=== PATIENT | female | born 1955 | race Caucasian/White ===

== ENCOUNTER 2024-05-15 22:34 | Observation (INO) | payer OTHER, SELFPAY ==
--- NOTE | ~2024-05-15 | XR_ITS ---
Portable chest x-ray Comparison: None Clinical History: Sepsis Findings: There is retrocardiac airspace consolidation with mild haziness in the left upper lobe. Ri ght lung clear. Cardiomediastinal silhouette is unremarkable, with a loop recorder. Bones and soft t issues are unremarkable. Impression: Left upper and lower lobe airspace consolidation, suspicious for multifocal left lung pneumonia. Reviewed, dictated and finalized at location . Impression: Left upper and lower lobe airspace consolidation, suspicious for multifocal lef t lung pneumonia.
--- NOTE | ~2024-05-15 | CT_ITS ---
History: Ground-level fall. PROCEDURE: CT head without contrast. Examination is markedly limited by motion artifact. COMPARISON: None TECHNIQUE: Axial imaging of the head performed from the skull base to the vertex without IV contrast. Sagittal a nd coronal reformations obtained. DLP: 1362 mGy-cm FINDINGS: The ventricles are enlarged. The dilatation of the ventricles is proportional to the degree of sulcal prominence, not uncommon in the senescent brain. Decreased attenuation is identified within the periventricular white matter, likely secondary to micr ovascular ischemic disease, in a patient of this age. Additional decreased attenuation is identified within the distribution of the right middle cerebral a rtery with encephalomalacia and gliosis for which prior cerebral infarction is suspected. There is no mass, mass effect or midline shift. There is no abnormal extra-axial fluid collection or intracranial hemorrhage. Visualized paranasal sinuses are clear. The mastoid air cells are well aerated. No acute displaced fractures within the overlying cranium. Impression: No acute intracranial hemorrhage or suspicious mass effect. Prior right MCA cerebral infarction Reviewed, dictated and finalized at location A. Impression: No acute intracranial hemorrhage or suspicious mass effect. Prior right MCA cerebral infarction
--- NOTE | ~2024-05-15 | XR_ITS ---
EXAM/PROCEDURE: XR chest 1V portable - 05/19/2024 10:50 CDT HISTORY: 68 years old Female with pneumonia TECHNIQUE: AP view(s) of the chest. COMPARISON: 05/16/2024 FINDINGS/ IMPRESSION: Mild interval improvement of previously seen retrocardiac airspace consolidation. Right lung is clear . Unremarkable cardiomediastinal silhouette with a loop recorder. Mild degenerative changes. Reviewed, dictated and finalized at location A.
--- NOTE | ~2024-05-15 | CT_ITS ---
History: Ground-level fall PROCEDURE: CT cervical spine without intravenous contrast. COMPARISON: None TECHNIQUE: Multiple contiguous axial images of the cervical spine were performed without the administration of i ntravenous contrast. DLP: 203 mGy-cm FINDINGS: Significant degenerative disease is identified, with osteophyte formation, disc space narrowing, endp late changes and facet arthropathy. No acute fractures are present. The right lung apex is clear. Patchy opacification of the left upper lobe for which an infiltrate is suspected. No soft tissue abnormality is present. The airway is patent. Impression: Severe degenerative disease, without acute fracture. Additional findings within the left upper lobe for which an infiltrate is suspected. Reviewed, dictated and finalized at location A. Impression: Severe degenerative disease, without acute fracture. Additional findings within the left upper lobe for which an infiltrate is suspe cted.
[2024-05-15 22:40] VITALS: BP 82/61; PULSE 82; RESP 18; O2SAT 93
--- NOTE | 2024-05-15 23:07 | ECG_ITS ---
Test Date: 2024-05-16 00:02:20 Measurements Intervals [place] Rate: 89 P: 75 IA: 187 QRS: 30 QRSD: 92 T: 42 QT: 328 QTc: 401 Interpretive Statements SINUS RHYTHM BORDERLINE ST-T WAVE ABNORMALITY- DIFFUSE LEADS BASELINE ARTIFACT- I, II, III, AVR, AVL, AVF, V1-V6 BORDERLINE ECG No previous ECG available for comparison Electronically Signed On 05-16-2024 07:49:16 CDT by Bridger Saul D.O.
--- OUTSIDE RECORDS SUMMARY | 2024-05-15 23:56 | XMS_ITS | Clinical Summary ---
Author Organization [facility] Address [address] [place] [address] Care Team Providers Care Finishing Range Operator Name Role Phone Denise Lopes MD Primary Care Provid er Allergies Active Allergy Reactions Criticality Noted Date Comments Codeine Anaphylaxis,Other (S ee comments),Shortness of breath High 05/12/2018 Medications acetaminophen (TYLENOL) 500 mg tablet Take 1,000 mg by mouth 2 times daily 05/01/2021 Active aspirin 325 mg tablet Take 325 mg by mouth daily 04/03/2021 Active atorvastatin (LIPITOR) 80 mg tablet 09/18/2021 Active busPIRone (BUSPAR) 10 mg tablet Take 1 tablet by mouth 3 (three) times a day 08/18/2020 Active clopidogreL (PLAVIX) 75 mg tablet 08/26/[address] (CYMBALTA) 60 mg capsule 09/14/2021 Active enoxaparin (LOVENOX) 40 mg/0.4 mL syringe Inject 40 mg under the skin daily 05/02/2021 Active gabapentin (NEURONTIN) 300 mg capsule 09/30/2021 Active guaiFENesin ER (MUCINEX) 600 mg 12 hr tablet Take 600 mg by mouth 2 (two) times a day as needed 05/01/2021 Active hydrOXYzine (ATARAX) 25 mg tablet Take 25 mg by mouth every 6 (six) hours as needed 05/01/2021 Active lactulose solution 10 gram/15mL Take 20 g by mouth 2 (two) times a day as needed 05/01/2021 Active melatonin 5 mg tablet Take 5 mg by mouth nightly as needed 04/02/2021 Active OLANZapine (ZyPREXA) 5 mg tablet Take 5 mg by mouth daily 05/02/2021 Active senna (SENOKOT) 8.6 mg tablet Take 8.6 mg by mouth daily 05/02/2021 Active tiZANidine (ZANAFLEX) 4 mg tablet Take 4 mg by mouth 3 (three) times a day 05/01/2021 Active Active Problems Problem Noted Date Diagnosed Date Leg swelling 10/07/2021 Assessment & Plan (10/07/2021 10:05 AM CDT): Left lower extremity edema in the hemiplegic side from a prior stroke. We discussed this is likely due to immobility and being wheelchair bound. I have recommended compression therapy. I have written prescription for compression stocking. She can follow-up p.r.n.. 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 05/01/2021 Difficulty in walking, not elsewhere classified 05/01/2021 Dysphagia following cerebral infarction 05/02/19 Dysphasia following nontraumatic intracerebral h emorrhage 05/01/2021 Hyperlipidemia, unspecified 05/01/2021 Assessment & Plan (10/07/2021 10:05 AM CDT): Lipitor Insomnia, unspecified 05/01/2021 Muscle weakness (generalized) 05/01/2021 Hemiplegia and hemiparesis f ollowing cerebral infarction affecting left non-dominant side 04/02/2021 Hemiplegia, unspecified affecting left nondomina nt side 04/02/2021 Hypertension 04/02/2021 Hypokalemia 04/02/2021 Cerebrovascular accident (CVA) 03/30/2021 Grief reaction 06/29/2019 Reactive depression 06/29/2019 Social History Tobacco Use Types Packs/Day Years Used Date Smoking Tobacco: Never Assessed Comments Unknown Sex and Gender Information Value Date Recorded Sex Assigned at Not on file 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 Gender Identity Female 10/07/2021 9:09 AM CDT Sexual Orientation Not on file Obstetrics History Last Filed Vital Signs Vital Sign Reading Time Taken Comments Blood Pressure 108/72 10/07/2021 9:23 AM CDT Pulse 106 10/07/2021 9:23 AM CDT Temperature - - Respiratory Rate - - Oxygen Saturation - - Inhaled Oxygen Concentration - - Weight 66.7 kg (147 lb) 10/07/2021 9:23 AM CDT Height 160 cm (5' 3 ) 10/07/2021 9:23 AM CDT Body Mass Index 26.04 10/07/2021 9:23 AM CDT Plan of Treatment Health Maintenance Due Date Last Done Comments Breast Cancer Screening-Mammogram 1955 Colon Cancer Screening-Colonoscopy 1955 Depression Screening 1955 Fall Risk Assessment 1955 Hepatitis C Screening 1955 Osteoporosis Screening-Bone Density Scan 1956 DTaP/Tdap/Td Vaccine (1 - Tdap) 09/26/1967 Hepatitis B Screening 1974 Pneumococcal vaccine 65+ (1 of 1 - PCV) 2006 Zoster Vaccine (1 of 2) 2006 Well Visit 65+ 2021 Covid-19 Vaccine (5 - 2023-2 5 season) 2023 06/17/2021, 06/17/2021, 12/08/2020, Additional history exists Influenza Vaccine (#1) 2023 11/29/2019 Insurance [facility] Care Teams Finishing Range Operator Relationship Specialty Start Date End Date Denise Lopes MD [address] [place] [address] PCP - General 03/30/21
--- OUTSIDE RECORDS SUMMARY | 2024-05-15 23:56 | XMS_ITS | Clinical Summary ---
Author Organization [facility] Address [address] [place] [address] Care Team Providers Care Broadcast Correspondent Name Role Phone Fadi Darden MD Primary Care Provider [phone] Allergies Active Allergy Reactions Criticality Noted Date Comments Codeine Shortness Of Breath High 04/02/2021 Medications acetaminophen (TYLENOL) 500 MG tablet Take 2 tablets (1,000 mg total) by mouth 2 (two) times a day before meals. 0 05/01/2021 Active acetaminophen (TYLENOL) 325 MG tablet Take 2 tablets (650 mg total) by mouth every 4 (four) hours as needed for mild pain. 0 05/01/2021 Active aspirin 325 MG tablet Take 1 tablet (325 mg total) by mouth daily. 0 05/02/2021 Active atorvastatin (LIPITOR) 80 MG tablet Take 1 tablet (80 mg total) by mouth daily. 0 05/02/2021 Active busPIRone (BUSPAR) 10 MG tablet Take 1 tablet (10 mg total) by mouth 2 (two) times a day. 0 05/01/2021 Active clopidogrel (PLAVIX) 75 MG tablet Take 1 tablet (75 mg total) by mouth daily. 0 05/02/2021 Active DULoxetine (CYMBALTA) 20 MG capsule Take 1 capsule (20 mg total) by mouth 2 (two) times a day. 0 05/01/2021 Active enoxaparin (LOVENOX) 40 MG/0.4ML solution Inject 0.4 mL (40 mg total) under the skin daily. 0 05/02/2021 Active guaiFENesin (MUCINEX) 600 MG 12 hr tablet Take 1 tablet (600 mg total) by mouth 2 (two) times a day as needed for cough. 0 05/01/2021 Active hydrOXYzine (ATARAX) 25 MG tablet Take 1 tablet (25 mg total) by mouth every 6 (six) hours as needed for anxiety. 0 05/01/2021 Active lactulose (CHRONULAC) 10 GM/15ML solution Take 30 mL (20 g total) by mouth 2 (two) times a day as needed (constipatio n). 0 05/01/2021 Active OLANZapine (ZYPREXA) 5 MG tablet Take 1 tablet (5 mg total) by mouth daily. 0 05/02/2021 Active senna (SENOKOT) 8.6 MG tablet Take 1 tablet (8.6 mg total) by mouth daily with lunch. 0 05/02/2021 Active tiZANidine (ZANAFLEX) 4 MG tablet Take 1 tablet (4 mg total) by mouth 3 (three) times a day. 0 05/01/2021 Active melatonin 5 MG tablet Take 1 tablet (5 mg total) by mouth nightly. 05/01/2021 Active Active Problems Problem Noted Date Diagnosed Date Hemiplegia affecting left nondominant side 04/02 Hypertension 04/02/2021 Hypokalemia 04/02/2021 Hemiparesis following cerebr al infarction affecting left non-dominant side 04/02/2021 Cerebrovascular accident 03/30/2021 Reactive depression (situational) 06/29/2019 Social History Tobacco Use Types Packs/Day Years Used Date Smoking Tobacco: Every Day Cigarettes Smokeless Tobacco: Never Tobacco Cessation:Ready to Q uit: No Alcohol Use Standard Drinks/Week Comments Yes 0 (1 standard drink = 0.6 oz pur e alcohol) not every day Comments Unknown Sex and Gender Information Value Date Recorded Sex Assigned at Not on file Legal Sex Female 12:31 PM EST Gender Identity Not on file Sexual Orientation Not on file Last Filed Vital Signs Vital Sign Reading Time Taken Comments Blood Pressure 115/73 05/01/2021 8:00 AM CDT Pulse 94 05/01/2021 8:00 AM CDT Temperature 37 C (98.6 F) 05/01/2021 8:00 AM CDT Respiratory Rate 18 05/01/2021 8:00 AM CDT Oxygen Saturation 96% 05/01/2021 8:00 AM CDT Inhaled Oxygen Concentration - - Weight 69.4 kg (153 lb) 04/09/2021 10:00 AM DISTRICT FIRE CHIEF Height 160 cm (5' 3 ) 04/02/2021 5:25 PM DISTRICT FIRE CHIEF Body Mass Index 27.1 04/02/2021 5:25 PM DISTRICT FIRE CHIEF Plan of Treatment Not on file Advance Directives * Full Resuscitation (Latest Code Status on File) Date Activated Date Inactivated Comments 04/02/2021 5:59 PM 05/01/2021 7:47 PM Care Teams Broadcast Correspondent Relationship Specialty Start Date End Date Fadi Darden MD PCP - General Family Medicine 04/03/21
--- OUTSIDE RECORDS SUMMARY | 2024-05-15 23:56 | XMS_ITS ---
Author Organization [facility] Care Team Providers Care Mixing Place Supervisor Name Role Phone Wang Kaufman Unavailable Unavailable Bubba iPnto Unavailable Unavailable Allergies and adverse reactions Code CodeSystem Substance Reaction Severity StartDate Concern Status 2670 RXNORM Codeine Severe 05/01/2021 active Care Team Name Role Address Phone Organization Dates Wang Kaufman PCP [address] [place], [address], [place] (Office): : : [facility] 05/01/2021 - 06/18/2021 Bubba Pinto Attending Physician [address], [address], [place] (Office): [facility] 05/01/2021 - 06/18/2021 Immunizations Immunization Status Vaccine Details Vaccine Code CodeSystem Date Notes TB 2 Step Mantoux Skin Test completed tuberculin skin test; unspecified formulation lotNumber: [id number] expiry: 07/24/2022 Mfg: [employer] PA[employer] LIMITED Given 0.1 ml Right Forearm intradermally Step 1 of Multi-step with next step required 98 CVX created date: 05/05/2021 consent date: 05/05/2021 administer ed date: 05/05/2021 SARS-COV-2 (COVID-19) completed SARS-COV-2 (COVID-19) vaccine, mRNA, spike protein, LNP, preservative free, 30 mcg/0.3mL dose Step 1 of Multi-step 208 CVX created date: 06/16/2021 consent date: 06/16/2021 administer ed date: 06/17/2021 2nd booster SARS-COV-2 (COVID-19) completed SARS-COV-2 (COVID-19) vaccine, mRNA, spike protein, LNP, preservative free, 30 mcg/0.3mL dose, eriberto-sucrose formulation Mfg: pfizer Step 1 of Multi-step 217 CVX created date: 05/04/2021 administer ed date: 12/28/2020 SARS-COV-2 (COVID-19) completed SARS-COV-2 (COVID-19) vaccine, mRNA, spike protein, LNP, preservative free, 30 mcg/0.3mL dose Step 2 of Multi-step with next step required 208 CVX created date: 05/14/2021 administer ed date: 03/24/2020 SARS-COV-2 (COVID-19) completed SARS-COV-2 (COVID-19) vaccine, mRNA, spike protein, LNP, preservative free, 30 mcg/0.3mL dose, eriberto-sucrose formulation Mfg: [employer] #1 Step 1 of Multi-step with next step required 217 CVX created date: 05/04/2021 administer ed date: 03/03/2020 Mental Status Section Date Assessment Total Score Description 06/18/2021 BIMS 10 moderate cognit kurt impairment CAM 0 No delirium ind icated PHQ-9 00 05/08/2021 BIMS 15 cognitively int act CAM 0 No delirium ind icated PHQ-9 00 Problems Problem # Description Date of onset Resolved Date Code CodeSystem Concern Status 1 ANXIETY DISORDER, UNSPECIFIED 05/01/[address] active 2 CEREBRAL INFARCTION DUE TO UNSPECIFIED OCCLUSION OR STENOSIS OF RIGHT MIDDLE CEREBRAL ARTERY 05/01/[address] active 3 COGNITIVE SOCIAL OR EMOTIONAL DEFICIT FOLLOWING CEREBRAL INFARCTION 05/01/[address] active 4 DIFFICULTY IN WALKING, NOT ELSEWHERE CLASSIFIED 05/01/[address] active 5 DYSPHAGIA FOLLOWING CEREBRAL INFARCTION 05/01/[address] active 6 DYSPHASIA FOLLOWING NONTRAUMATIC INTRACEREBRAL HEMORRHAGE 05/01/[address] active 7 ESSENTIAL (PRIMARY) HYPERTENSION 05/01/[address] active 8 HEMIPLEGIA AND HEMIPARESIS FOLLOWING CEREBRAL INFARCTION AFFECTING LEFT NON-DOMINANT SIDE 05/01/[address] active 9 HYPERLIPIDEMIA, UNSPECIFIED 05/01/[address] active 10 HYPOKALEMIA 05/01/[address] active 11 INSOMNIA, UNSPECIFIED 05/01/[address] active 12 MUSCLE WEAKNESS (GENERALIZED) 05/01/[address] active 13 OTHER SPECIFIED DEPRESSIVE EPISODES 05/01/[address] active Reason for Referral No Reasons for Referral Entered Social History Social History Observation Description Start Date End Date Code Code System Current Smoking Status Tobacco smoking consumption unknown 328662899 SNOMED CT Sex Assigned At Female 1955 89461-6 [facility] Vital Signs Code Code System Vitals Name Values and Units Timing Information 35149-2 INC Pain Level Value=0.0 06/18/2021 8310-5 INC Body Temperature Value=98.0 Units= F 06/18/2021 27489-5 LOINC O2 % BldC Oximetry Value=96.0 Units= % 06/18/2021 63790-5 LOINC Weight Agjic=777.0 Units=Lbs 07/2021 9279-1 LOINC Respiratory Rate Value=18.0 Units=/m in 05/07/2021 8462-4 LOINC Blood Pressure-Diastolic Value=69 Un its=mmHg 05/07/2021 8480-6 LOINC Blood Pressure-Systolic Wonjt=609 Un its=mmHg 05/07/2021 8867-4 LOINC Heart rate Ffeig=634.0 Units=/min 05/07/2021 8302-2 LOINC Height Value=63.0 Units=Inches 05/02/2021
--- OUTSIDE RECORDS SUMMARY | 2024-05-15 23:56 | XMS_ITS | Encounter Summary ---
Author Organization [facility] Address [address] [place] [address] Care Team Providers Care Coordinator Hotels Name Role Phone Unavailable Primary Care Provider Unavailabl e Encounter Details Date Type Department Care Team (Latest Contact Info) Description 04/02/2021 11:24 AM FINISHER CARD TENDER Hospital Encounter [address] [address] Meg Doty MD [facility] Social History Tobacco Use Types Packs/Day Years Used Date Smoking Tobacco: Every Day Cigarettes 1 53.3 Started: [birth year]/07/1971 Smokeless Tobacco: Never Alcohol Use Standard Drinks/Week Comments Not Currently 0 (1 standard drink = 0.6 oz pur e alcohol) AUDIT-C Answer Date Recorded Q1: How often do you have a drink containing alc ohol? Monthly or less 03/30/2021 Q2: How many drinks containi ng alcohol do you have on a typical day when you are drinking? 1 or 2 03/30/2021 Q3: How often do you have si x or more drinks on one occasion? Less than monthly 03/30/2021 PHQ-2 Answer Date Recorded PHQ2 TOTAL SCORE 2 03/30/2021 Hunger Vital Sign Answer Date Recorded Within the past 12 months, y ou worried that your food would run out before you got the money to buy more. Never true 03/31/19 22 Within the past 12 months, t he food you bought just didn't last and you didn't have money to get more. Never true 03/31/2021 Sex and Gender Information Value Date Recorded Sex Assigned at Not on file Gender Identity Not on file Sexual Orientation Not on file COVID-19 Exposure Response Date Recorded In the last month, have you been in contact with someone who was confirmed or suspected to have Coronavirus / COVID-19? No / Unsure 03/30/2021 9:09 PM FINISHER CARD TENDER documented as of this encounter Functional Status Functional Status Response Date of Assess ment Is person deaf or have serious hearing difficult y? No 03/31/2021 Is person blind or have serious difficulty seein g? No 03/31/2021 Does person have serious dif ficulty walking/climbing stairs? No 03/31/2021 Does person have difficulty dressing/bathing? No 03/31/2021 Does person have difficulty doing errands alone? No 03/31/2021 Cognitive Status Response Date of Assessm ent Does person have difficulty concentrating/remembering/making decisions? Yes-can no longer drive, at times gets lost 03/31/2021 documented as of this encounter Plan of Treatment Not on file documented as of this encounter Visit Diagnoses Not on filedocumented in this encounter Additional Health Concerns Infection Onset Date Last Indicated Resolved Time COVID-19 Under Investigation 04/28/2021 04/28/2021 04/28/2021 6:56 PM CDT documented as of this encounter
--- OUTSIDE RECORDS SUMMARY | 2024-05-15 23:56 | XMS_ITS | Referral Summary ---
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
--- OUTSIDE RECORDS SUMMARY | 2024-05-15 23:56 | XMS_ITS | Clinical Summary ---
Author Organization [facility] Address [address] [place] [address] Care Team Providers Care Senior Director Insight Name Role Phone Unavailable Primary Care Provider Unavailabl e Source Comments [facility],non-owned Affiliates and Associated Physician Practices is amultiple site organization consisting of ambulatory clinics and hospital sitesin [place], [place], [place] and [place]. This disclosure is being madepursuant to the Care Everywhere program and may not contain all information available regarding this patient. Last updated 17.[facility] [employer] Allergies Active Allergy Reactions Criticality Noted Date Comments Codeine Anaphylaxis High 05/12/2018 Medications * Be aware that medications may not be up to date on this document. Alwaysverify current medications with the patient. Medication Sig Dispensed Refills Start Date End Date Status atorvastatin (LIPITOR) 80 MG tablet Take 80 mg by mouth once daily 02/02/2021 Active busPIRone (BUSPAR) 10 MG tablet Take 1 tablet by mouth 3 times daily 08/18/2020 Active clopidogrel (PLAVIX) 75 MG tablet Take 75 mg by mouth once daily 02/02/2021 Active escitalopram (LEXAPRO) 20 MG tablet Take 20 mg by mouth once daily 03/02/2021 Active aspirin (ASPIRIN) 325 MG tablet Take 1 (one) tablet by mouth once daily 04/03/2021 Active melatonin 5 MG tablet Take 1 (one) tablet by mouth nightly as needed for Insomnia 04/02/2021 Active Active Problems Problem Noted Date Diagnosed Date Cerebrovascular accident (CVA) 03/30/2021 Social History Tobacco Use Types Packs/Day Years [...] money to buy more. Never true 03/31/19 Within the past 12 months, t he food you bought just didn't last and you didn't have money to get more. Never true 03/31/2021 Sex and Gender Information Value Date Recorded Sex Assigned at Not on file Gender Identity Not on file Sexual Orientation Not on file Last Filed Vital Signs Vital Sign Reading Time Taken Comments Blood Pressure 173/112 04/02/2021 3:14 PM EELER Pulse 97 04/02/2021 3:14 PM EELER Temperature 37.1 C (98.8 F) 04/02/2021 3:14 PM EELER Respiratory Rate 19 04/02/2021 3:14 PM EELER Oxygen Saturation 97% 04/02/2021 3:14 PM EELER Inhaled Oxygen Concentration - - Weight 64.9 kg (143 lb) 04/01/2021 5:21 AM EELER Height 160 cm (5' 3 ) 03/31/2021 3:58 AM EELER Body Mass Index 25.33 03/31/2021 3:58 AM EELER Plan of Treatment Health Maintenance Due Date Last Done Comments BONE DENSITY TESTING 1955 COLOGUARD (AGES 45-75) - COLON CA SCREENING 1955 COLON MONITORING 1956 COLONOSCOPY - COLON CA SCREENING 1956 CT COLONOGRAPHY - COLON CA SCREENING 1955 Colorectal Cancer Screening 1955 FIT - COLON CA SCREENING 1955 FLEX SIG - COLON CA SCREENING 1955 MAMMOGRAM 1955 HEPATITIS C SCREENING 09/21/1974 DTAP/TDAP/TD VACCINES (1 - Tdap) 09/26/1975 PNEUMOCOCCAL VACCINE 50+ (1 of 2 - PCV) 09/26/1975 LUNG CANCER SCREENING 2006 ZOSTER VACCINE (1 of 2) 2006 COVID-19 VACCINE (4 - season) 2023 12/08/2020, 03/24/2020, 03/03/2020 DEPRESSION SCREENING 02/08/2024 SCREENING FOR DIABETES 04/30/2024 , 04/27/2021, 04/23/2021, Additional history exists INFLUENZA VACCINE (Season Ended) 2024 11/29/2019 Respiratory Syncytial Virus (RSV) Vaccine Pt: or over 60 yrs (1 - 1-dose 75+ series) 09/26/2031 HEPATITIS B VACCINE Aged Out No longe r eligible based on patient's age to complete this topic HIB VACCINE Aged Out No longer eligi ble based on patient's age to complete this topic HPV VACCINE Aged Out No longer eligi ble based on patient's age to complete this topic MENINGOCOCCAL (Group B) VACCINE SHARED DECISION-MAKING Aged Out No longer eligible based on patient's age to complete this topic MENINGOCOCCAL GROUPS A/C/Y/W VACCINE Aged Out No longer eligible based on patient's age to complete this topic Procedures Procedure Name Priority Date/Time Associated Diagnosis Comments BASIC METABOLIC PANEL (CALCIUM TOTAL) Routine 04/30/2021 3:59 AM CDT from Last 3 Months or Most Recently Relevant to Health Maintenance Results * (ABNORMAL) BASIC METABOLIC PANEL (CALCIUM TOTAL) (04/30/2021 3:59 AM CDT) [facility] Glucose 134(H) 70 - 105 mg/dL 04/30/2021 6:47 AM CDT [facility] Sodium 139 136 - 145 mmol/L 04/30/2021 6:47 AM CDT [facility] Potassium 4.2 3.5 - 5.1 mmol/L 04/30/2021 6:47 AM CDT [facility] Chloride 106 98 - 107 mmol/L 04/30/2021 6:47 AM CDT [facility] CO2 23 23 - 31 mmol/L 04/30/2021 6:47 AM CDT [facility] Calcium 9.3 8.4 - 10.4 mg/dL 04/30/2021 6:47 AM CDT [facility] Anion Gap 10 8 - 18 mmol/L 04/30/2021 6:47 AM CDT [facility] BUN 28(H) 9.8 - 20.1 mg/dL 04/30/2021 6:47 AM CDT [facility] Creatinine 0.78 0.57 - 1.11 mg/dL 04/30/2021 6:47 AM CDT [facility] eGFR by CKD-EPI 85(L) >=90 mL/min/1.7 3 m2 04/30/2021 6:47 AM CDT [facility] Blood BLOOD SPECIMEN / Unknown 04/30/2021 3:59 AM CDT 04/30/2021 6:09 AM CDT Narrative [facility] - 04/30/2021 6:47 AM CDT eGFR result was calculated using the updated CKD-EPI Creatinine Equations (2020). Prior to go live 2021 the eGFR was calculated using the MDRD calculation. Please note Reference Range change. Bridgette House SEVERITY OF ILLNESS COORDINATOR-BUS CLEANER LAB - CHEMISTRY ORDERABLES [facility] [address] [place] [address] from Last 3 Months or Most Recently Relevant to Health Maintenance Advance Directives * Full Code (Latest Code Status on File) Date Activated Date Inactivated Comments 04/05/2021 7:37 AM 05/01/2021 5:45 PM * Full Code Date Activated Date Inactivated Comments 03/30/2021 6:18 PM 04/02/2021 5:30 PM
[2024-05-16] VITALS (9 sets, daily range): BP systolic 93–139; BP diastolic 59–87; PULSE 88–107; RESP 14–20; TEMP 36.2–37.1; O2SAT 93–98; BMI 22.4
[2024-05-16] MEDS: SODIUM CHLORIDE 0.9% IV 1,000 ML 999 ML IV CONT ×2 (00:08)
[2024-05-16] MEDS: CEFEPIME 2 GM/NS 50 ML 2 GM/50 ML BAG IVPB ×3 (00:08→21:20)
[2024-05-16] MEDS: ENTER PT HEIGHT 1 EACH XX (00:12)
[2024-05-16] MEDS: Please add drug allergy info to patient profile. 1 EACH XX (00:12)
[2024-05-16 00:20] LABS: Lactic Acid Reflex 1.3 mmol/L (0.7-2.0)
[2024-05-16 00:21] LABS: Add Urine Microscopic? YES; Appearance Urine Cloudy (Clear); Bacteria Urine 4+ /hpf; Bilirubin Urine 2+ (Negative); Blood Urine Negative (Negative); Budding Yeast Urine Present /hpf; Color Urine Dark Yellow (Yellow); Glucose Urine UA Negative (Negative); Ketones Urine 1+ mg/dL (Negative); Leukocyte Esterase Ur 1+ LEU/UL (Negative); Need Manual Microscopic Reviewed; Nitrate Urine Negative (Negative); Protein Urine 1+ mg/dL (Negative); RBC Urine 0-2 /hpf (0-2); Specific Grav Ur 1.024 (1.001-1.035); Squamous Epithelial Cell Urine Moderate /hpf (Few); WBC Urine 21-50 /hpf (0-3); pH Urine 5.5 (5.0-9.0)
[2024-05-16 00:26] LABS: INR 1.1; Prothrombin Time 14.7 Seconds (11.1-14.7)
[2024-05-16 00:27] LABS: Partial Thromboplastin Time 37.8 Seconds (22.3-36.8)
[2024-05-16 00:28] LABS: Alanine Aminotransferase 14 U/L (6-35); Albumin Level 3.1 g/dL (3.5-5.1); Alkaline Phosphatase 146 U/L (38-126); Anion Gap 7 mmol/L (4-12); Aspartate Amino Transferase 40 U/L (14-36); Bilirubin,Total 0.9 mg/dL (0.2-1.3); Blood Urea Nitrogen 29 mg/dL (7-17); Calcium 8.5 mg/dL (8.4-10.2); Carbon Dioxide 30 mmol/L (22-30); Chloride 94 mmol/L (98-107); Estimated CRCL calculation 57 ml/min; Estimated Glomerular Filt Rate > 60; Glucose 144 mg/dL (65-110); Potassium 3.3 mmol/L (3.4-5.0); Sodium 131 mmol/L (137-145)
[2024-05-16 00:37] LABS: Basophils Absolute Auto 0.1 K/mm3 (0.0-0.1); Basophils Percent Auto 0.3 % (0.2-1.2); Eosinophils Percent Auto 0.1 % (0-4.4); Hematocrit 32.6 % (37.0-47.0); Immature Granulocyte Absolute 0.08 K/mm3 (0.00-0.031); Immature Granulocyte Percent A 0.5 % (0-0.5); Lymphocytes Absolute Auto 0.68 K/mm3 (0.9-3.2); Mean Corpuscular HGB Conc 30.7 g/dl (32-36); Mean Corpuscular Hemoglobin 29.2 pg (26-34); Mean Platelet Volume 9.7 fl (7.4-10.4); Monocytes Absolute Auto 0.6 K/mm3 (0.1-0.6); Monocytes Percent Auto 3.8 % (2.6-8.5); Neutrophils Absolute Auto 15.5 K/mm3 (1.3-6.7); Neutrophils Percent Auto 91.3 % (45.5-73.1); Platelet Count Result 564 k/mm3 (150-375); Red Blood Count 3.43 M/mm3 (4.2-5.4); Red Cell Distribution Width 13.8 % (11.5-14.5)
[2024-05-16 00:47] LABS: Band Neutrophils Percent 0 % (0-6); Platelet Estimate Increased (Adequate)
[2024-05-16 00:48] LABS: Ovalocytes 1+; Poikilocytosis 1+; Schistocytes None Seen
[2024-05-16 01:03] LABS: CRP 27.1 mg/dL (<1.0)
[2024-05-16] MEDS: VANCOMYCIN 1,750 MG/NS 500 ML 1,750 MG/500 ML BAG 250 MG IVPB (01:14)
--- NOTE | 2024-05-16 02:11 | ED.FALL ---
HPI - Fall General Chief Complaint: Fall Stated Complaint: FALL OUT OF BED, ON BLOOD THINNERS Time Seen by Provider: 05/15/24 22:59 Source: patient and family Mode of arrival: EMS Limitations: no limitations History of Present Illness HPI Narrative: This is a 68-year-old female, with history of stroke with left-sided deficits, brought in by EMS after a fall at her [place] [facility]. The patient states staff got home a were attempting to roll her when she fell out of bed. She has no complaints at this time and looks forward to going home. EMS reports the patient had a ground level fall without loss of consciousness. They states she takes Plavix and was sent in for evaluation. Related Data Home Medications ?Medication ?Instructions ?Recorded ?Confirmed ?Last Taken ?Type acetaminophen 325 mg chewable 650 mg PO Q4-6H PRN fever or pain 05/16/24 05/16/24 Unknown History tablet aspirin 81 mg tablet,delayed 81 mg PO DAILY 05/16/24 05/16/24 Unknown History release (Adult Aspirin Regimen) atorvastatin 80 mg tablet 80 mg PO QPM 05/16/24 05/16/24 Unknown History buspirone 10 mg tablet 10 mg PO HS 05/16/24 05/16/24 Unknown History buspirone 5 mg tablet 5 mg PO QAM 05/16/24 05/16/24 Unknown History clopidogrel 75 mg tablet 75 mg PO DAILY 05/16/24 05/16/24 Unknown History duloxetine 60 mg capsule,delayed 60 mg PO QAM 05/16/24 05/16/24 Unknown History release ferrous fumarate 324 mg (106 mg 324 mg PO DAILY 05/16/24 05/16/24 Unknown History iron) tablet (Ferrocite) gabapentin 300 mg capsule 300 mg PO Q8H 05/16/24 05/16/24 Unknown History polyethylene glycol 3350 17 17 g PO DAILY 05/16/24 05/16/24 Unknown History gram/dose oral powder (Miralax) pramipexole 0.25 mg tablet 0.25 mg PO TID 05/16/24 05/16/24 Unknown History ropinirole 0.25 mg tablet 0.25 mg PO TID 05/16/24 05/16/24 Unknown History sennosides 8.6 mg capsule (senna) 8.6 mg PO DAILY 05/16/24 05/16/24 Unknown History tizanidine 4 mg tablet 4 mg PO TID 05/16/24 05/16/24 Unknown History trazodone 50 mg tablet 50 mg PO HS 05/16/24 05/16/24 Unknown History Allergies Allergy/AdvReac Type Severity Reaction Status Date / Time codeine Allergy Unknown Verified 05/16/24 00:11 Review of Systems Review of Systems: All systems reviewed & are unremarkable except as noted in HPI and below PMFSH Past Medical History Medical History History of CVA (cerebrovascular accident) Surgical History Surgical History No significant past surgical history Social History Social History Smoking packs per day: 1 Smoking cigarettes per day: 20.0 Years smoked: 49 Smoking pack-years: 49.00 Smoking status: Current every day smoker Tobacco type: cigarettes Alcohol intake: unknown Substance use: unknown Do You Feel Safe in your Home?: Yes Lack of Transportation: No Lack of Food: Never True Current Housing: I Have Housing Concerned About Future Housing: No Difficulty Paying Gas/Electric Bills: No Difficulty Paying for Meds: No Currently Unemployed: No Education: High School Diploma/GED Difficulty w/ Childcare or Family Care: No Spiritual care concerns: No Exam Narrative: GENERAL: Well-developed, well-nourished, and in no acute distress. HEAD: Normocephalic, atraumatic. EYES: PERRLA and EOMI. ENT: Nares clear, no rhinorrhea or epistaxis. Mucous membranes moist. Oropharynx without tonsillar hypertrophy exudate or other lesions. CHEST: Clear to auscultation. No respiratory distress. No wheezes rales or rhonchi HEART: Regular rate and rhythm. No murmur heard. Normal peripheral pulses. ABDOMEN: Soft, nontender, nondistended, normal active bowel sounds. EXTREMITIES: Normal range of motion. No edema. SKIN: Warm, dry, no rash. NEURO: Alert and oriented x3. Left-sided weakness and contractures. Moving the right side spontaneously PSYCH: Normal mood and affect. Course Course Emergency Course: 23:35 - The patient is hypotensive. I had of increased concern for sepsis. We with unclear cause. Will order sepsis protocol, IV antibiotics and 30 cc/kg fluid bolus and reassess. 02:11 - CT of the head not concerning for skull fracture or intracranial hemorrhage. CT cervical spine negative for fracture or dislocation though does show focal infiltrates in the left lung concerning for pneumonia. The patient's white blood cell count is elevated to 17 with hemoglobin of 10. Chemistries demonstrate mild hypokalemia with potassium 3.3 but is otherwise unremarkable. Urinalysis shows changes consistent with urinary tract infection. The patient was given cefepime and vancomycin. Her blood pressure improved to the 110s after fluid bolus. I suspect sepsis due to pneumonia versus UTI. I discussed the patient with hospitalist, Dr. Martinez who accepts admission. Vital Signs Vital signs: Vital Signs Pulse Rate 82 05/15/24 22:40 Respiratory Rate 18 05/15/24 22:40 Blood Pressure 82/61 L 05/15/24 22:40 Pulse Oximetry 93 05/15/24 22:40 Oxygen Delivery Room Air 05/15/24 22:40 Temperature 98.8 F 05/16/24 04:18 Pulse Rate 88 05/16/24 04:18 Respiratory Rate 18 05/16/24 04:18 Blood Pressure 115/59 L 05/16/24 04:18 Pulse Oximetry 94 05/16/24 04:18 Oxygen Delivery Room Air 05/16/24 03:39 MDM - Fall MDM Narrative Medical decision making narrative: Plan: Labs, sepsis protocol, IV fluids, imaging, reassess Differential Diagnosis Differential diagnosis: Likely other (Intracranial hemorrhage, skull fracture, cervical spine fracture, pneumonia, UTI, metabolic abnormality, dehydration, other) Lab Data 05/15/24 23:50 05/15/24 23:50 Labs: Lab Results 05/15/24 05/16/24 05/16/24 Range/Units 23:50 00:00 01:17 WBC 17.0 H (4.5-10.0) K/mm3 RBC 3.43 L (4.2-5.4) M/mm3 Hgb 10.0 L (12.0-15.0) g/dL Hct 32.6 L (37.0-47.0) % MCV 95.0 (80-100) fl MCH 29.2 (26-34) pg MCHC 30.7 L (32-36) g/dl RDW 13.8 (11.5-14.5) % Plt Count 564 H (150-375) k/mm3 MPV 9.7 (7.4-10.4) fl Immature Gran % (Auto) 0.5 (0-0.5) % Neut % (Auto) 91.3 H (45.5-73.1) % Lymph % (Auto) 4.0 L (18.3-44.2) % [place] % (Auto) 3.8 (2.6-8.5) % Eos % (Auto) 0.1 (0-4.4) % Baso % (Auto) 0.3 (0.2-1.2) % Lymph # (Auto) 0.68 L (0.9-3.2) K/mm3 Armstrong # (Auto) 0.6 (0.1-0.6) K/mm3 Eos # (Auto) 0.0 (0-0.3) K/mm3 Baso # (Auto) 0.1 (0.0-0.1) K/mm3 Abs Immat Gran (auto) 0.08 H (0.00-0.031) K/mm3 Absolute Neuts (auto) 15.5 H (1.3-6.7) K/mm3 Absolute Nucleated RBC 0.000 (0.0-0.012) K/mm3 Band Neutrophils % 0 (0-6) % Nucleated RBC % 0.0 (0.0-0.2) % Platelet Estimate Increased (Adequate) Poikilocytosis 1+ Ovalocytes 1+ Schistocytes None seen PT 14.7 (11.1-14.7) Seconds INR 1.1 APTT 37.8 H (22.3-36.8) Seconds Sodium 131 L (137-145) mmol/L Potassium 3.3 L (3.4-5.0) mmol/L Chloride 94 L (98-107) mmol/L Carbon Dioxide 30 (22-30) mmol/L Anion Gap 7 (4-12) mmol/L BUN 29 H (7-17) mg/dL Creatinine 0.68 L (0.7-1.0) mg/dL Estim Creat Clear Calc 57 ml/min Estimated GFR > 60 (59 - ) Glucose 144 H (65-110) mg/dL Lactic Acid 1.3 (0.7-2.0) mmol/L Calcium 8.5 (8.4-10.2) mg/dL Total Bilirubin 0.9 (0.2-1.3) mg/dL AST 40 H (14-36) U/L ALT 14 (6-35) U/L Alkaline Phosphatase 146 H (38-126) U/L C-Reactive Protein 27.1 H (<1.0) mg/dL Total Protein 8.0 (6.3-8.2) g/dL Albumin 3.1 L (3.5-5.1) g/dL Urine Color Dark yellow (Yellow) Urine Appearance Cloudy H (Clear) Urine pH 5.5 (5.0-9.0) Ur Specific [place] 1.024 (1.001-1.035) Urine Protein 1+ H (Negative) mg/dL Urine Glucose (UA) Negative (Negative) mg/dL Urine Ketones 1+ H (Negative) mg/dL Ur Blood (Man) Negative (Negative) Urine Nitrate Negative (Negative) Urine Bilirubin 2+ H (Negative) Urine Urobilinogen 1.0 (<2.0) mg/dL Add Ur Microanalysis Reviewed Leukocyte Esterase Rfl 1+ H (Negative) JSOE/UL Urine RBC 0-2 (0-2) /hpf Urine WBC 21-50 H (0-3) /hpf Ur Squamous Epith Cells Moderate (Few) /hpf Urine Bacteria 4+ H /hpf Urine Casts 3-5 Urine Yeast (Budding) Present H (None) /hpf Nasal MRSA (PCR) Not detected (NOT DETECTE) Discharge Plan Discharge Clinical Impression: Community acquired pneumonia Qualifiers: Laterality: left Lung location: upper lobe of lung Qualified Code(s): J18.9 - Pneumonia, unspecified organism UTI (urinary tract infection) Qualifiers: Urinary tract infection type: acute cystitis Hematuria presence: with hematuria Qualified Code(s): N30.01 - Acute cystitis with hematuria Sepsis Qualifiers: Sepsis type: sepsis due to unspecified organism Sepsis acute organ dysfunction status: without acute organ dysfunction Qualified Code(s): A41.9 - Sepsis, unspecified organism Patient Disposition: Still a Patient Condition: Serious Time of Disposition: 02:11
[2024-05-16 02:52] LABS: MRSA (PCR) NOT DETECTED (NOT DETECTE)
--- NOTE | 2024-05-16 03:39 | ADMGEN ---
This patient, Jessica Blankenship, was admitted to [facility] Surg Room 311-01. Patient/family oriented to hospital policies and general routines including ID bracelet, bed and alarms, visiting hours, pain management, procedures, bathroom and other care routines, personal items, smoking policy, room service/diet, and visiting hours. Information on how to activate the Rapid Response Team has been discussed. Patient/Family are encouraged to report perceived risks to care and to ask questions if they do not understand what they are told or what they should do.
--- NOTE | 2024-05-16 05:53 | PM.IMHP ---
H&P: HPI History of Present Illness Date/Time: 05/16/24 05:53 Chief Complaint: 1. Fall 2. Cough Narrative: Jessica Blankenship is a 68 F with a medical history significant for dyslipidemia, anxiety, CVA, peripheral neuropathy, RLS, insomnia. Due to residual effects of previous CVA, she had baseline ability to assist device and is unstable on her feet; hours prior to admission she while trying to navigate her way out of bed lost her balance and sustained a fall. She confesses to hitting head on a distant objects, denies bleeding/clots, LOC, chest pain, or preceding dizziness/vertiginous symptoms. She confesses to current smoking of less than 0.5 ppd cigarettes per day: Denies alcohol or recreational/illicit drug use Work-up findings: WBC 17; HGB tends MCV 95; PLT 564 INR 1.1; PT 14.7 Na 131; K 3.3; Cl 94; CO2 30; HGB 7; BUN 29; CR 0.68; GFR 57 AST 14; ALT 14; ALP 146; T does bilirubin 0.9; CRP 27 UA: Negative nitrite; 1+ leukocyte esterase; 21-50 WBC; 4+ bacteria\ CXR: Left upper and lower lobe airspace consolidation, suspicious for multifocal left lung pneumonia. CT cervical spine: Severe degenerative disease, without acute fracture. Head CT: No acute intracranial hemorrhage or suspicious mass effect. Jessica Blankenship will be admitted, evaluated and managed for palpitations Review of Systems Review of Systems: All systems reviewed & are unremarkable except as noted in HPI and below PMFSH Social History Social History Smoking packs per day: 1 Smoking cigarettes per day: 20.0 Years smoked: 49 Smoking pack-years: 49.00 Smoking status: Current every day smoker Tobacco type: cigarettes Alcohol intake: unknown Substance use: unknown Do You Feel Safe in your Home?: Yes Lack of Transportation: No Lack of Food: Never True Current Housing: I Have Housing Concerned About Future Housing: No Difficulty Paying Gas/Electric Bills: No Difficulty Paying for Meds: No Currently Unemployed: No Education: High School Diploma/GED Difficulty w/ Childcare or Family Care: No Spiritual care concerns: No Meds Home Medications and Allergies Home Medications ?Medication ?Instructions ?Recorded ?Confirmed ?Type acetaminophen 325 mg chewable 650 mg PO Q4-6H PRN fever or pain 05/16/24 05/16/24 History tablet aspirin 81 mg tablet,delayed 81 mg PO DAILY 05/16/24 05/16/24 History release (Adult Aspirin Regimen) atorvastatin 80 mg tablet 80 mg PO QPM 05/16/24 05/16/24 History buspirone 10 mg tablet 10 mg PO HS 05/16/24 05/16/24 History buspirone 5 mg tablet 5 mg PO QAM 05/16/24 05/16/24 History clopidogrel 75 mg tablet 75 mg PO DAILY 05/16/24 05/16/24 History duloxetine 60 mg capsule,delayed 60 mg PO QAM 05/16/24 05/16/24 History release ferrous fumarate 324 mg (106 mg 324 mg PO DAILY 05/16/24 05/16/24 History iron) tablet (Ferrocite) gabapentin 300 mg capsule 300 mg PO Q8H 05/16/24 05/16/24 History polyethylene glycol 3350 17 17 g PO DAILY 05/16/24 05/16/24 History gram/dose oral powder (Miralax) pramipexole 0.25 mg tablet 0.25 mg PO TID 05/16/24 05/16/24 History ropinirole 0.25 mg tablet 0.25 mg PO TID 05/16/24 05/16/24 History sennosides 8.6 mg capsule (senna) 8.6 mg PO DAILY 05/16/24 05/16/24 History tizanidine 4 mg tablet 4 mg PO TID 05/16/24 05/16/24 History trazodone 50 mg tablet 50 mg PO HS 05/16/24 05/16/24 History Allergies Allergy/AdvReac Type Severity Reaction Status Date / Time codeine Allergy Unknown Verified 05/16/24 00:11 Vital Signs Vital Signs - 24 hr 05/15/24 22:40 05/16/24 00:04 05/16/24 01:24 Temperature Pulse Rate 82 90 99 Respiratory Rate 18 19 18 Blood Pressure 82/61 L 93/61 L 113/68 Pulse Oximetry 93 93 93 Oxygen Delivery Room Air 05/16/24 02:43 05/16/24 03:39 05/16/24 04:18 Temperature 98.8 F Pulse Rate 101 H 88 Respiratory Rate 18 18 Blood Pressure 114/72 115/59 L Pulse Oximetry 98 94 Oxygen Delivery Room Air Exam Const: General: no acute distress HENMT: Ears: TM's normal bilaterally Face/Nose/Sinus: Normal nares present Eyes: General: appearance normal, both eyes and all related structures Pupils: Equal, round and reactive pupils present EOM: EOMs intact bilaterally Neck: Neck: supple Resp: Effort & Inspection: normal respiratory effort Auscultation: rhonchi upper bilaterally and throughout Cardio: Rate: regular rate Rhythm: regular rhythm Skin: General skin exam: normal color Neuro: General: No gait normal Speech: normal speech Motor exam (neuro): Abnormal motor strength present Extrem: General: normal to inspection Psych: Mental Status: mental status grossly normal Affect: Anxious affect present H&P: Results Labs Labs: Short CBC 05/15/24 Range/Units 23:50 WBC 17.0 H (4.5-10.0) K/mm3 Hgb 10.0 L (12.0-15.0) g/dL Hct 32.6 L (37.0-47.0) % Plt Count 564 H (150-375) k/mm3 BMP 05/15/24 23:50 Sodium 131 L Potassium 3.3 L Chloride 94 L Carbon Dioxide 30 BUN 29 H Creatinine 0.68 L Glucose 144 H Calcium 8.5 Liver Function 05/15/24 Range/Units 23:50 Total Bilirubin 0.9 (0.2-1.3) mg/dL AST 40 H (14-36) U/L ALT 14 (6-35) U/L Alkaline Phosphatase 146 H (38-126) U/L Albumin 3.1 L (3.5-5.1) g/dL Urine 05/16/24 Range/Units 00:00 Urine Color Dark yellow (Yellow) Urine Appearance Cloudy H (Clear) Urine pH 5.5 (5.0-9.0) Ur Specific [place] 1.024 (1.001-1.035) Urine Protein 1+ H (Negative) mg/dL Urine Glucose (UA) Negative (Negative) mg/dL Assessment and Plan Assessment and plan (1) Community acquired pneumonia: Code(s): J18.9 - Pneumonia, unspecified organism Status: Acute (2) UTI (urinary tract infection): Code(s): N39.0 - Urinary tract infection, site not specified Status: Acute Plan Acute and principal conditions 1. CAP 2. Fall; Unstable gait 3. Probable Sepsis 4. UTI Rx: A. Cefepime, Doxycycline; Anti-tussives; IS B. Blood cultures; Urine cultures C. Troponin; BNP D. PT eval and Rx Chronic and stable conditions 1. CVA with residual deficits. on ASA, statin 2. RLS. On Pramipexole 3. Insomnia. On Trazodone 4. Recurrent depression w/anxiety. On Duloxetin, Buspirone 5. Peripheral neuropathy. On Gabapentin 6. Dyslipidemia. On Rosuvastain 7. Nicotine dependence. Cessation counseling, 3 minutes Miscellaneous care 1. Code status. Full code 2. Nutrition. heart healthy 3. VTE prophylaxis. SCDs; [facility] Hospitalist [facility] Advance Care Plan I have confirmed that the patient's Advanced Care Plan is present, code status is documented, or surrogate decision maker is listed in patient medical record.: Yes Medication Reconciliation I have utilized all available resources to obtain, update and review the patients current medications (includes all prescriptions, OTC, herbals, cannabis, and nutritional supplements).: Yes The patient is not eligible for med reconciliation; the patient is in a emergent medical situation where delaying treatment would jeopardize the patients health.: Yes
[2024-05-16] MEDS: SODIUM CHLORIDE 0.9% IV 1,000 ML 100 ML IV CONT (06:28)
[2024-05-16 06:33] LABS: Cholesterol 93 mg/dL (0-200); HDL Direct 24 mg/dL; Triglycerides 80 mg/dL (<150)
[2024-05-16 06:43] LABS: LDL Cholesterol Direct 41 mg/dL
[2024-05-16 07:19] LABS: NT Pro B Type Natriuretic Pept 787 pg/mL (19.9-100); Troponin I < 0.012 ng/mL (0.000-0.034)
[2024-05-16] MEDS: DOXYCYCLINE 100 MG/NS 100 ML 100 MG/100 ML BAG IVPB ×2 (08:27→20:18)
[2024-05-16] MEDS: busPIRone HCL 5 MG TABLET PO (08:50)
[2024-05-16] MEDS: CLOPIDOGREL BISULFATE 75 MG TABLET PO (08:51)
[2024-05-16] MEDS: ASPIRIN 81 MG ENTERIC TABLET PO (08:51)
[2024-05-16] MEDS: GABAPENTIN 300 MG CAPSULE PO ×3 (08:51→16:47)
[2024-05-16] MEDS: DULoxetine HCL 60 MG CAPSULE.DR PO (08:52)
[2024-05-16] MEDS: ENOXAPARIN 40 MG/0.4 ML SYRINGE SUB-Q (08:52)
[2024-05-16] MEDS: PRAMIPEXOLE 0.25 MG TABLET PO ×3 (10:35→16:47)
[2024-05-16] MEDS: traZODone HCL 50 MG TABLET PO (20:19)
[2024-05-16] MEDS: ATORVASTATIN 40 MG TABLET 80 MG PO (20:19)
[2024-05-16] MEDS: busPIRone HCL 10 MG TABLET PO (20:19)
[2024-05-17] MEDS: SODIUM CHLORIDE 0.9% IV 1,000 ML 100 ML IV CONT ×3 (01:43→22:55)
[2024-05-17 04:00] VITALS: BP 115/57; PULSE 103; RESP 14; TEMP 36.7; O2SAT 96
[2024-05-17 06:22] LABS: Basophils Absolute Auto 0.1 K/mm3 (0.0-0.1); Basophils Percent Auto 0.7 % (0.2-1.2); Eosinophils Absolute Auto 0.1 K/mm3 (0-0.3); Eosinophils Percent Auto 0.5 % (0-4.4); Hematocrit 31.4 % (37.0-47.0); Hemoglobin 9.5 g/dL (12.0-15.0); Immature Granulocyte Absolute 0.07 K/mm3 (0.00-0.031); Immature Granulocyte Percent A 0.5 % (0-0.5); Lymphocytes Absolute Auto 0.93 K/mm3 (0.9-3.2); Lymphocytes Percent Auto 6.8 % (18.3-44.2); Mean Corpuscular HGB Conc 30.3 g/dl (32-36); Mean Corpuscular Hemoglobin 29.7 pg (26-34); Mean Corpuscular Volume 98.1 fl (80-100); Mean Platelet Volume 9.5 fl (7.4-10.4); Monocytes Absolute Auto 0.6 K/mm3 (0.1-0.6); Monocytes Percent Auto 4.5 % (2.6-8.5); Platelet Count Result 523 k/mm3 (150-375); Red Cell Distribution Width 13.8 % (11.5-14.5); White Blood Count 13.7 K/mm3 (4.5-10.0)
[2024-05-17 07:06] LABS: Alanine Aminotransferase 12 U/L (6-35); Albumin Level 2.6 g/dL (3.5-5.1); Alkaline Phosphatase 92 U/L (38-126); Anion Gap 6 mmol/L (4-12); Aspartate Amino Transferase 35 U/L (14-36); Bilirubin,Total 0.8 mg/dL (0.2-1.3); Blood Urea Nitrogen 15 mg/dL (7-17); Calcium 7.9 mg/dL (8.4-10.2); Carbon Dioxide 24 mmol/L (22-30); Chloride 106 mmol/L (98-107); Estimated CRCL calculation 81 ml/min; Estimated Glomerular Filt Rate > 60; Glucose 115 mg/dL (65-110); Potassium 3.6 mmol/L (3.4-5.0); Sodium 136 mmol/L (137-145)
--- NOTE | 2024-05-17 08:40 | P.PNIM_ITS ---
Progress Note: A&P Assessment and Plan (1) Community acquired pneumonia: Qualifiers: Laterality: left Lung location: upper lobe of lung Qualified Code(s): J18.9 - Pneumonia, unspecified organism Code(s): J18.9 - Pneumonia, unspecified organism Status: Acute Assessment and Plan: Monitor vital signs, I&Os, neuro status and patient is a fall risk Follow WBC, serum electrolytes, temperature curves and cultures Oxygen via NC; wean as tolerated. Keep SpO2 greater than 88% Gentle IV fluid resuscitation Cefepime 2gm q12hr and Doxycycline 100mg Q12hr DuoNeb q6H and Albuterol q2H PRN P.r.n. Tylenol, Zofran, and melatonin (2) Sepsis: Qualifiers: Sepsis acute organ dysfunction status: without acute organ dysfunction Sepsis type: sepsis due to unspecified organism Qualified Code(s): A41.9 - Sepsis, unspecified organism Code(s): A41.9 - Sepsis, unspecified organism Status: Acute Assessment and Plan: Meets SIRS criteria: - lactic acid: 1.3 - suspected source: UTI, CAP - blood cultures drawn on 05/15 - UA: Cloudy, 1+ protein, 1+ ketones, 2+ Bilirubin, 1+ Leuk Esterase, 21-50 WBC, 4+ Bacteria - Urine culture drawn on 05/17 - CXR: Left upper and lower lobe airspace consolidation, suspicious for multifocal left lung pneumonia. (3) UTI (urinary tract infection): Qualifiers: Hematuria presence: with hematuria Urinary tract infection type: acute cystitis Qualified Code(s): N30.01 - Acute cystitis with hematuria Code(s): N39.0 - Urinary tract infection, site not specified Status: Acute Assessment and Plan: - UA: Cloudy, 1+ protein, 1+ ketones, 2+ Bilirubin, 1+ Leuk Esterase, 21-50 WBC, 4+ Bacteria - UC obtained on 05/17 - started on Cefepime, doxycycline (4) Restless leg syndrome: Code(s): G25.81 - Restless legs syndrome Status: Acute Assessment and Plan: * On Pramipexole (5) Insomnia: Code(s): G47.00 - Insomnia, unspecified Status: Acute Assessment and Plan: * Continue Trazodone (6) Depression: Code(s): F32.A - Depression, unspecified Status: Acute Assessment and Plan: * Continue Duloxetine, Buspirone (7) History of CVA with residual deficit: Code(s): I69.30 - Unspecified sequelae of cerebral infarction Status: Acute Assessment and Plan: * Continue ASA and statin (8) Dyslipidemia: Code(s): E78.5 - Hyperlipidemia, unspecified Status: Acute Assessment and Plan: Continue Rosuvastatin Time Spent With Patient Time: Subjective Date/time seen: 05/17/24 08:40 Interval history: 68 F with a medical history significant for dyslipidemia, anxiety, CVA, peripheral neuropathy, RLS, insomnia. Due to residual effects of previous CVA, she had baseline ability to assist device and is unstable on her feet; hours prior to admission she while trying to navigate her way out of bed lost her balance and sustained a fall. 05/17/2024 Patient sitting comfortably in bed at time of examination. Pt denies any chest pain, n/v, or abdominal pain at this time, reports her shortness of breath has greatly improved. Leukocytosis improving, 17->13.7. Bloodwork otherwise stable or near baseline. Lung humphreys sound clear. Plan to D/C tomorrow pending improving of symptoms and WBC. Review of Systems Review of Systems: All systems reviewed & are unremarkable except as noted in HPI and below Exam Const: General: no acute distress HENMT: Ears: TM's normal bilaterally Face/Nose/Sinus: Normal nares present Eyes: General: appearance normal, both eyes and all related structures Pupils: Equal, round and reactive pupils present EOM: EOMs intact bilaterally Neck: Neck: supple Resp: Effort & Inspection: normal respiratory effort Auscultation: rhonchi upper bilaterally and throughout Cardio: Rate: regular rate Rhythm: regular rhythm Skin: General skin exam: normal color Neuro: General: No gait normal Cranial nerves: Yes Equal, round and reactive pupils present Speech: normal speech Motor exam (neuro): Abnormal motor strength present Extrem: General: normal to inspection Psych: Mental Status: mental status grossly normal Affect: Anxious affect present Objective Data Vital Signs Vital Signs: Vital Signs - 24 hr 05/16/24 12:00 05/16/24 16:00 05/16/24 20:00 Temperature 98.1 F 97.2 F L 97.1 F L Pulse Rate 107 H 97 107 H Respiratory Rate 20 20 14 Blood Pressure 116/74 139/87 121/62 Pulse Oximetry 93 95 94 05/16/24 23:59 05/17/24 04:00 Temperature 97.1 F L 98.1 F Pulse Rate 106 H 103 H Respiratory Rate 16 14 Blood Pressure 110/65 115/57 L Pulse Oximetry 96 96 Intake/Output Intake/Output: Intake & Output 05/14/24 05/15/24 05/16/24 05/17/24 23:59 23:59 23:59 23:59 Intake Total 4440 150 Output Total 350 400 Balance 4090 -250 Meds/Results Medications: Active Medications Generic Name Dose Route Start Last Admin Trade Name Freq PRN Reason Stop Dose Admin Acetaminophen 650 mg 05/16/24 05:50 Acetaminophen 325 Mg Tablet PO Q4H PRN Mild Pain (1-3) or Fever Aspirin 81 mg 05/16/24 09:00 05/16/24 08:51 Aspirin 81 Mg Enteric Tablet PO 81 mg DAILY LYNDON Administration Atorvastatin Calcium 80 mg 05/16/24 21:00 05/16/24 20:19 Atorvastatin 40 Mg Tablet PO 80 mg QHS LYNDON Administration Buspirone HCl 5 mg 05/16/24 09:00 05/16/24 08:50 Buspirone Hcl 5 Mg Tablet PO 5 mg QAM LYNDON Administration Buspirone HCl 10 mg 05/16/24 21:00 05/16/24 20:19 Buspirone Hcl 10 Mg Tablet PO 10 mg HS LYNDON Administration Clopidogrel Bisulfate 75 mg 05/16/24 09:00 05/16/24 08:51 Clopidogrel Bisulfate 75 Mg Tablet PO 75 mg DAILY LYNDON Administration Duloxetine HCl 60 mg 05/16/24 09:00 05/16/24 08:52 Duloxetine Hcl 60 Mg Capsule.Dr PO 60 mg QAM LYNDON Administration Enoxaparin Sodium 40 mg 05/16/24 09:00 05/16/24 08:52 Enoxaparin 40 Mg/0.4 Ml Syringe SUB-Q 40 mg DAILY LYNDON Administration Ferrous Fumarate 324 mg 05/16/24 09:00 05/16/24 10:34 Ferrous Fumarate 324 Mg (106 Mg Iron) Tablet PO 324 mg DAILY LYNDON Administration Gabapentin 300 mg 05/16/24 09:00 05/16/24 16:47 Gabapentin 300 Mg Capsule PO 300 mg TID LYNDON Administration Sodium Chloride 1,000 mls @ 100 mls/hr 05/16/24 05:50 05/17/24 01:43 Normal Saline Iv IV CONT 100 mls/hr .Q10H LYNDON Administration Cefepime HCl 2 gm in 50 mls @ 100 mls/hr 05/16/24 10:00 05/16/24 21:20 Maxipime 2 Gm/Ns 50 Ml IVPB 100 mls/hr Q12HR LYNDON Administration Doxycycline Hyclate 100 mg in 100 mls @ 100 mls/hr 05/16/24 08:00 05/16/24 20:18 Vibramycin 100 Mg/Ns 100 Ml IVPB 100 mls/hr Q12H LYNDON Administration Melatonin 5 mg 05/16/24 05:50 Melatonin 5 Mg Tablet PO HS PRN Insomnia Pramipexole Dihydrochloride 0.25 mg 05/16/24 09:00 05/16/24 16:47 Pramipexole 0.25 Mg Tablet PO 0.25 mg TID LYNDON Administration Trazodone HCl 50 mg 05/16/24 21:00 05/16/24 20:19 Trazodone Hcl 50 Mg Tablet PO 50 mg HS LYNDON Administration Radiology Results: ITS Impressions Head CT 05/15/24 23:29 Impression: No acute intracranial hemorrhage or suspicious mass effect. Prior right MCA cerebral infarction Cervical Spine CT 05/15/24 23:39 Impression: Severe degenerative disease, without acute fracture. Additional findings within the left upper lobe for which an infiltrate is suspected. Chest X-Ray 05/16/24 05:25 Impression: Left upper and lower lobe airspace consolidation, suspicious for multifocal left lung pneumonia. Labs Labs: Laboratory Results - last 24 hr 05/17/24 05:42 WBC 13.7 H RBC 3.20 L Hgb 9.5 L Hct 31.4 L MCV 98.1 MCH 29.7 MCHC 30.3 L RDW 13.8 Plt Count 523 H MPV 9.5 Immature Gran % (Auto) 0.5 Neut % (Auto) 87.0 H Lymph % (Auto) 6.8 L [place] % (Auto) 4.5 Eos % (Auto) 0.5 Baso % (Auto) 0.7 Lymph # (Auto) 0.93 [place] # (Auto) 0.6 Eos # (Auto) 0.1 Baso # (Auto) 0.1 Abs Immat Gran (auto) 0.07 H Absolute Neuts (auto) 12.0 H Absolute Nucleated RBC 0.000 Nucleated RBC % 0.0 Sodium 136 L Potassium 3.6 Chloride 106 Carbon Dioxide 24 Anion Gap 6 BUN 15 D Creatinine 0.46 L Estim Creat Clear Calc 81 Estimated GFR > 60 Glucose 115 H Calcium 7.9 L Total Bilirubin 0.8 AST 35 ALT 12 Alkaline Phosphatase 92 Total Protein 7.0 Albumin 2.6 L
[2024-05-17] MEDS: DOXYCYCLINE 100 MG/NS 100 ML 100 MG/100 ML BAG IVPB ×2 (09:05→21:48)
[2024-05-17] MEDS: GABAPENTIN 300 MG CAPSULE PO ×3 (09:22→21:51)
[2024-05-17] MEDS: CEFEPIME 2 GM/NS 50 ML 2 GM/50 ML BAG IVPB ×2 (09:22→22:55)
[2024-05-17] MEDS: PRAMIPEXOLE 0.25 MG TABLET PO ×3 (09:23→21:52)
[2024-05-17] MEDS: DULoxetine HCL 60 MG CAPSULE.DR PO (09:23)
[2024-05-17] MEDS: ASPIRIN 81 MG ENTERIC TABLET PO (09:23)
[2024-05-17] MEDS: CLOPIDOGREL BISULFATE 75 MG TABLET PO (09:23)
[2024-05-17] MEDS: busPIRone HCL 5 MG TABLET PO (09:23)
[2024-05-17] MEDS: ENOXAPARIN 40 MG/0.4 ML SYRINGE SUB-Q (09:28)
[2024-05-17] MEDS: polyethylene glycoL 3350 17 GM POWD.PACK PO (09:28)
[2024-05-17] MEDS: SENNOSIDES 8.6 MG TABLET PO (09:28)
--- NOTE | 2024-05-17 10:49 | PCPTNOTE ---
10:30am: PT eval attempted, pt adamantly refused and told therapist and tech to quit, whatever you are doing, I am not feeling good right now. Noted contracted LLE with severe pain upon movement. Care coordination note states pt uses a jone and w/c at the snf. eval deferred. RR, PT
[2024-05-17 12:00] VITALS: BP 122/88; PULSE 100; RESP 20; TEMP 36.6; O2SAT 94
--- NOTE | 2024-05-17 13:04 | PCPTNOTE ---
Spoke the current hospitalist - OK to discharge therapy orders due to pt being at baseline. Pt dependent at baseline requiring jone lift for transfers.
[2024-05-17] MEDS: TIZANIDINE HCL 4 MG TABLET PO ×3 (13:49→21:51)
[2024-05-17 16:00] VITALS: BP 107/58; PULSE 98; RESP 18; TEMP 36.8; O2SAT 97
[2024-05-17 21:00] VITALS: BP 123/74; PULSE 102; RESP 20; TEMP 36.6; O2SAT 95
[2024-05-17] MEDS: ATORVASTATIN 40 MG TABLET 80 MG PO (21:53)
[2024-05-17] MEDS: busPIRone HCL 10 MG TABLET PO (21:53)
[2024-05-17] MEDS: MELATONIN 5 MG TABLET PO (21:53)
[2024-05-17] MEDS: traZODone HCL 50 MG TABLET PO (21:54)
[2024-05-18 00:45] VITALS: BP 90/52; PULSE 85; RESP 16; TEMP 36.1; O2SAT 95
[2024-05-18 05:30] VITALS: BP 108/69; PULSE 107; RESP 16; TEMP 36.4; O2SAT 96
[2024-05-18 07:02] LABS: Alanine Aminotransferase 10 U/L (6-35); Albumin Level 2.5 g/dL (3.5-5.1); Alkaline Phosphatase 112 U/L (38-126); Anion Gap 9 mmol/L (4-12); Aspartate Amino Transferase 28 U/L (14-36); Bilirubin,Total 0.6 mg/dL (0.2-1.3); Blood Urea Nitrogen 11 mg/dL (7-17); Calcium 7.9 mg/dL (8.4-10.2); Carbon Dioxide 19 mmol/L (22-30); Chloride 110 mmol/L (98-107); Estimated CRCL calculation 92 ml/min; Estimated Glomerular Filt Rate > 60; Glucose 133 mg/dL (65-110); Sodium 138 mmol/L (137-145)
[2024-05-18 08:00] VITALS: BP 137/67; PULSE 108; RESP 18; TEMP 36.7; O2SAT 98
[2024-05-18] MEDS: polyethylene glycoL 3350 17 GM POWD.PACK PO (08:33)
[2024-05-18] MEDS: ENOXAPARIN 40 MG/0.4 ML SYRINGE SUB-Q (08:33)
[2024-05-18] MEDS: PRAMIPEXOLE 0.25 MG TABLET PO ×3 (08:34→17:12)
[2024-05-18] MEDS: CLOPIDOGREL BISULFATE 75 MG TABLET PO (08:34)
[2024-05-18] MEDS: busPIRone HCL 5 MG TABLET PO (08:34)
[2024-05-18] MEDS: DULoxetine HCL 60 MG CAPSULE.DR PO (08:34)
[2024-05-18] MEDS: ASPIRIN 81 MG ENTERIC TABLET PO (08:34)
[2024-05-18] MEDS: TIZANIDINE HCL 4 MG TABLET PO ×3 (08:34→17:12)
[2024-05-18] MEDS: POTASSIUM CHLORIDE 20 MEQ ER TABLET 40 MEQ PO (08:34)
[2024-05-18] MEDS: SENNOSIDES 8.6 MG TABLET PO (08:34)
[2024-05-18] MEDS: GABAPENTIN 300 MG CAPSULE PO ×3 (08:34→17:12)
[2024-05-18] MEDS: DOXYCYCLINE 100 MG/NS 100 ML 100 MG/100 ML BAG IVPB (08:40)
[2024-05-18] MEDS: CEFEPIME 2 GM/NS 50 ML 2 GM/50 ML BAG IVPB (09:48)
[2024-05-18 10:10] LABS: Basophils Absolute Auto 0.1 K/mm3 (0.0-0.1); Basophils Percent Auto 0.6 % (0.2-1.2); Eosinophils Absolute Auto 0.1 K/mm3 (0-0.3); Eosinophils Percent Auto 0.4 % (0-4.4); Hematocrit 29.2 % (37.0-47.0); Immature Granulocyte Absolute 0.15 K/mm3 (0.00-0.031); Immature Granulocyte Percent A 1.1 % (0-0.5); Lymphocytes Absolute Auto 0.87 K/mm3 (0.9-3.2); Lymphocytes Percent Auto 6.2 % (18.3-44.2); Mean Corpuscular HGB Conc 30.8 g/dl (32-36); Mean Corpuscular Hemoglobin 29.5 pg (26-34); Mean Corpuscular Volume 95.7 fl (80-100); Mean Platelet Volume 9.1 fl (7.4-10.4); Monocytes Absolute Auto 0.6 K/mm3 (0.1-0.6); Monocytes Percent Auto 4.3 % (2.6-8.5); Neutrophils Absolute Auto 12.3 K/mm3 (1.3-6.7); Neutrophils Percent Auto 87.4 % (45.5-73.1); Platelet Count Result 480 k/mm3 (150-375); Red Blood Count 3.05 M/mm3 (4.2-5.4); White Blood Count 14.1 K/mm3 (4.5-10.0)
[2024-05-18 12:00] VITALS: BP 109/59; PULSE 102; RESP 20; TEMP 36.4; O2SAT 97
--- NOTE | 2024-05-18 13:13 | P.PNIM_ITS ---
Progress Note: A&P Assessment and Plan (1) Community acquired pneumonia: Qualifiers: Laterality: left Lung location: upper lobe of lung Qualified Code(s): J18.9 - Pneumonia, unspecified organism Code(s): J18.9 - Pneumonia, unspecified organism Status: Acute Assessment and Plan: * Monitor vital signs, I&Os, neuro status and patient is a fall risk * Follow WBC, serum electrolytes, temperature curves and cultures * Oxygen via NC; wean as tolerated. Keep SpO2 greater than 88% * Gentle IV fluid resuscitation * Cefepime 2gm q12hr and Doxycycline 100mg Q12hr, transitioned to PO Levofloxacin * DuoNeb q6H and Albuterol q2H PRN * P.r.n. Tylenol, Zofran, and melatonin (2) Sepsis: Qualifiers: Sepsis acute organ dysfunction status: without acute organ dysfunction Sepsis type: sepsis due to unspecified organism Qualified Code(s): A41.9 - Sepsis, unspecified organism Code(s): A41.9 - Sepsis, unspecified organism Status: Acute Assessment and Plan: Meets SIRS criteria: - lactic acid: 1.3 - suspected source: UTI, CAP - blood cultures drawn on 05/15 - UA: Cloudy, 1+ protein, 1+ ketones, 2+ Bilirubin, 1+ Leuk Esterase, 21-50 WBC, 4+ Bacteria - Urine culture drawn on 05/17 - CXR: Left upper and lower lobe airspace consolidation, suspicious for multifocal left lung pneumonia. - Transitioned to PO Levofloxacin (3) UTI (urinary tract infection): Qualifiers: Hematuria presence: with hematuria Urinary tract infection type: acute cystitis Qualified Code(s): N30.01 - Acute cystitis with hematuria Code(s): N39.0 - Urinary tract infection, site not specified Status: Acute Assessment and Plan: - UA: Cloudy, 1+ protein, 1+ ketones, 2+ Bilirubin, 1+ Leuk Esterase, 21-50 WBC, 4+ Bacteria - UC obtained on 05/17 - started on Cefepime, doxycycline - transitioned to Levo (4) Restless leg syndrome: Code(s): G25.81 - Restless legs syndrome Status: Acute Assessment and Plan: * On Pramipexole (5) Insomnia: Code(s): G47.00 - Insomnia, unspecified Status: Acute Assessment and Plan: * Continue Trazodone (6) Depression: Code(s): F32.A - Depression, unspecified Status: Acute Assessment and Plan: * Continue Duloxetine, Buspirone (7) History of CVA with residual deficit: Code(s): I69.30 - Unspecified sequelae of cerebral infarction Status: Acute Assessment and Plan: * Continue ASA and statin (8) Dyslipidemia: Code(s): E78.5 - Hyperlipidemia, unspecified Status: Acute Assessment and Plan: Continue Rosuvastatin Time Spent With Patient Time: Subjective Date/time seen: 05/18/24 13:13 Interval history: 68 F with a medical history significant for dyslipidemia, anxiety, CVA, peripheral neuropathy, RLS, insomnia. Due to residual effects of previous CVA, she had baseline ability to assist device and is unstable on her feet; hours prior to admission she while trying to navigate her way out of bed lost her balance and sustained a fall. 05/18/2024 Patient sitting comfortably in bed at time of examination. Pt denies any chest pain, n/v, or abdominal pain at this time, reports her shortness of breath continues to improve. WBC of 14.1. Potassium 3.0, will supplement as needed. Lung humphreys sound clear. Plan to D/C tomorrow pending tolerance of PO antibiotics and improvement of symptoms and WBC. Review of Systems Review of Systems: All systems reviewed & are unremarkable except as noted in HPI and below Exam Const: General: no acute distress HENMT: Ears: TM's normal bilaterally Face/Nose/Sinus: Normal nares present Eyes: General: appearance normal, both eyes and all related structures Pupils: Equal, round and reactive pupils present EOM: EOMs intact bilaterally Neck: Neck: supple Resp: Effort & Inspection: normal respiratory effort Auscultation: rhonchi upper bilaterally and throughout Cardio: Rate: regular rate Rhythm: regular rhythm Skin: General skin exam: normal color Neuro: General: No gait normal Cranial nerves: Yes Equal, round and reactive pupils present Speech: normal speech Motor exam (neuro): Abnormal motor strength present Extrem: General: normal to inspection Psych: Mental Status: mental status grossly normal Affect: Anxious affect present Objective Data Vital Signs Vital Signs: Vital Signs - 24 hr 05/17/24 16:00 05/17/24 20:00 05/17/24 21:00 Temperature 98.3 F 98 F Pulse Rate 98 102 H Respiratory Rate 18 20 Blood Pressure 107/58 L 123/74 Pulse Oximetry 97 95 Oxygen Delivery Room Air 05/18/24 00:45 05/18/24 05:30 05/18/24 08:00 Temperature 97 F L 97.5 F L 98.0 F Pulse Rate 85 107 H 108 H Respiratory Rate 16 16 18 Blood Pressure 90/52 L 108/69 137/67 Pulse Oximetry 95 96 98 Oxygen Delivery 05/18/24 08:00 05/18/24 12:00 Temperature 97.6 F Pulse Rate 102 H Respiratory Rate 20 Blood Pressure 109/59 L Pulse Oximetry 97 Oxygen Delivery Room Air Intake/Output Intake/Output: Intake & Output 05/15/24 05/16/24 05/17/24 05/18/24 23:59 23:59 23:59 23:59 Intake Total 4590 3790 708.3 Output Total 350 1150 175 Balance 4240 2640 533.3 Meds/Results Medications: Active Medications Generic Name Dose Route Start Last Admin Trade Name Freq PRN Reason Stop Dose Admin Acetaminophen 650 mg 05/17/24 08:43 Acetaminophen 325 Mg Tablet BY MOUTH Q4-6H PRN fever or pain Aspirin 81 mg 05/16/24 09:00 05/18/24 08:34 Aspirin 81 Mg Enteric Tablet PO 81 mg DAILY LYNDON Administration Atorvastatin Calcium 80 mg 05/16/24 21:00 05/17/24 21:53 Atorvastatin 40 Mg Tablet PO 80 mg QHS LYNDON Administration Buspirone HCl 5 mg 05/16/24 09:00 05/18/24 08:34 Buspirone Hcl 5 Mg Tablet PO 5 mg QAM LYNDON Administration Buspirone HCl 10 mg 05/16/24 21:00 05/17/24 21:53 Buspirone Hcl 10 Mg Tablet PO 10 mg HS LYNDON Administration Clopidogrel Bisulfate 75 mg 05/16/24 09:00 05/18/24 08:34 Clopidogrel Bisulfate 75 Mg Tablet PO 75 mg DAILY LYNDON Administration Duloxetine HCl 60 mg 05/16/24 09:00 05/18/24 08:34 Duloxetine Hcl 60 Mg Capsule.Dr PO 60 mg QAM LYNDON Administration Enoxaparin Sodium 40 mg 05/16/24 09:00 05/18/24 08:33 Enoxaparin 40 Mg/0.4 Ml Syringe SUB-Q 40 mg DAILY LYNDON Administration Ferrous Fumarate 324 mg 05/16/24 09:00 05/18/24 08:35 Ferrous Fumarate 324 Mg (106 Mg Iron) Tablet PO 324 mg DAILY LYNDON Administration Gabapentin 300 mg 05/16/24 09:00 05/18/24 12:22 Gabapentin 300 Mg Capsule PO 300 mg TID LYNDON Administration Sodium Chloride 1,000 mls @ 100 mls/hr 05/16/24 05:50 05/18/24 06:00 Normal Saline Iv IV CONT 0 mls/hr .Q10H LYNDON Infusion Levofloxacin 750 mg 05/19/24 09:00 Levofloxacin 750 Mg Tablet PO DAILY LYNDON Melatonin 5 mg 05/16/24 05:50 05/17/24 21:53 Melatonin 5 Mg Tablet PO 5 mg HS PRN Administration Insomnia Polyethylene Glycol 17 gm 05/17/24 09:00 05/18/24 08:33 Polyethylene Glycol 3350 17 Gm Powd.Pack PO 17 gm DAILY LYNDON Administration Pramipexole Dihydrochloride 0.25 mg 05/16/24 09:00 05/18/24 12:22 Pramipexole 0.25 Mg Tablet PO 0.25 mg TID LYNDON Administration Senna 8.6 mg 05/17/24 09:00 05/18/24 08:34 Sennosides 8.6 Mg Tablet PO 8.6 mg DAILY LYNDON Administration Tizanidine HCl 4 mg 05/17/24 09:00 05/18/24 12:22 Tizanidine Hcl 4 Mg Tablet PO 4 mg TID LYNDON Administration Trazodone HCl 50 mg 05/16/24 21:00 05/17/24 21:54 Trazodone Hcl 50 Mg Tablet PO 50 mg HS LYNDON Administration Radiology Results: ITS Impressions Head CT 05/15/24 23:29 Impression: No acute intracranial hemorrhage or suspicious mass effect. Prior right MCA cerebral infarction Cervical Spine CT 05/15/24 23:39 Impression: Severe degenerative disease, without acute fracture. Additional findings within the left upper lobe for which an infiltrate is suspected. Chest X-Ray 05/16/24 05:25 Impression: Left upper and lower lobe airspace consolidation, suspicious for multifocal left lung pneumonia. Labs Labs: Laboratory Results - last 24 hr 05/18/24 05/18/24 06:12 09:58 WBC Cancelled 14.1 H RBC Cancelled 3.05 L Hgb Cancelled 9.0 L Hct Cancelled 29.2 L MCV Cancelled 95.7 MCH Cancelled 29.5 MCHC Cancelled 30.8 L RDW Cancelled 14.0 Plt Count Cancelled 480 H MPV Cancelled 9.1 Immature Gran % (Auto) Cancelled 1.1 H Neut % (Auto) Cancelled 87.4 H Lymph % (Auto) Cancelled 6.2 L [place] % (Auto) Cancelled 4.3 Eos % (Auto) Cancelled 0.4 Baso % (Auto) Cancelled 0.6 Lymph # (Auto) Cancelled 0.87 L [place] # (Auto) Cancelled 0.6 Eos # (Auto) Cancelled 0.1 Baso # (Auto) Cancelled 0.1 Abs Immat Gran (auto) Cancelled 0.15 H Absolute Neuts (auto) Cancelled 12.3 H Absolute Nucleated RBC Cancelled 0.000 Total Counted Cancelled Neutrophils % (Manual) Cancelled Band Neutrophils % Cancelled Lymphocytes % (Manual) Cancelled Monocytes % (Manual) Cancelled Eosinophils % (Manual) Cancelled Basophils % (Manual) Cancelled Metamyelocytes % Cancelled Myelocytes % Cancelled Promyelocytes % (Man) Cancelled Nucleated RBC % Cancelled 0.0 Abs Neuts (Manual) Cancelled Abs Lymphs (Manual) Cancelled Abs Monocytes (Manual) Cancelled Absolute Eos (Manual) Cancelled Abs Basophils (Manual) Cancelled Nucleated RBCs Cancelled Hypersegmented Neuts Cancelled Atypical Lymphocytes Cancelled Blast Cells Cancelled Plasma Cells Cancelled Smudge Cells Cancelled Other Cell Type Cancelled Toxic Granulation Cancelled Dohle Bodies Cancelled Ranjith Rods Cancelled Platelet Estimate Cancelled Clumped Platelets Cancelled Large Platelets Cancelled Giant Platelets Cancelled % Immature Plt Fraction Cancelled Polychromasia Cancelled Hypochromasia Cancelled Hyperchromasia Cancelled Poikilocytosis Cancelled Basophilic Stippling Cancelled Anisocytosis Cancelled Microcytosis Cancelled Macrocytosis Cancelled Spherocytes Cancelled Pappenheimer Bodies Cancelled Sickle Cells Cancelled Target Cells Cancelled [place]ear Drop Cells Cancelled Ovalocytes Cancelled Stomatocytes Cancelled Helmet Cells Cancelled [place] Bodies Cancelled [place] Rings Cancelled [place] Cells Cancelled Crenated Cell Cancelled Acanthocytes (Spur) Cancelled Rouleaux Cancelled Schistocytes Cancelled Sodium 138 Potassium 3.0 L Chloride 110 H Carbon Dioxide 19 L Anion Gap 9 BUN 11 Creatinine 0.40 L Estim Creat Clear Calc 92 Estimated GFR > 60 Glucose 133 H Calcium 7.9 L Total Bilirubin 0.6 AST 28 ALT 10 Alkaline Phosphatase 112 Total Protein 6.0 L Albumin 2.5 L
[2024-05-18 16:00] VITALS: BP 123/69; PULSE 105; RESP 20; TEMP 36.5; O2SAT 97
[2024-05-18 20:00] VITALS: BP 118/64; PULSE 79; RESP 16; TEMP 36.6; O2SAT 94
[2024-05-18] MEDS: traZODone HCL 50 MG TABLET PO (20:49)
[2024-05-18] MEDS: busPIRone HCL 10 MG TABLET PO (20:49)
[2024-05-18] MEDS: ATORVASTATIN 40 MG TABLET 80 MG PO (20:49)
[2024-05-19] VITALS: BP 116/62; PULSE 71; RESP 16; TEMP 37; O2SAT 95
[2024-05-19] MEDS: SODIUM CHLORIDE 0.9% IV 1,000 ML 100 ML IV CONT (02:17)
[2024-05-19 04:00] VITALS: BP 120/66; PULSE 74; RESP 16; TEMP 36.4; O2SAT 94
[2024-05-19 08:00] VITALS: BP 114/71; PULSE 123; RESP 18; TEMP 36.7; O2SAT 100
[2024-05-19] MEDS: CLOPIDOGREL BISULFATE 75 MG TABLET PO (08:05)
[2024-05-19] MEDS: DULoxetine HCL 60 MG CAPSULE.DR PO (08:05)
[2024-05-19] MEDS: polyethylene glycoL 3350 17 GM POWD.PACK PO (08:05)
[2024-05-19] MEDS: levoFLOXacin 750 MG TABLET PO (08:05)
[2024-05-19] MEDS: ASPIRIN 81 MG ENTERIC TABLET PO (08:05)
[2024-05-19] MEDS: busPIRone HCL 5 MG TABLET PO (08:05)
[2024-05-19] MEDS: SENNOSIDES 8.6 MG TABLET PO (08:06)
[2024-05-19] MEDS: TIZANIDINE HCL 4 MG TABLET PO ×3 (08:06→18:05)
[2024-05-19] MEDS: ENOXAPARIN 40 MG/0.4 ML SYRINGE SUB-Q (08:06)
[2024-05-19] MEDS: GABAPENTIN 300 MG CAPSULE PO ×3 (08:06→18:05)
[2024-05-19] MEDS: PRAMIPEXOLE 0.25 MG TABLET PO ×3 (08:06→18:05)
[2024-05-19 08:31] LABS: Basophils Absolute Auto 0.1 K/mm3 (0.0-0.1); Basophils Percent Auto 0.6 % (0.2-1.2); Eosinophils Absolute Auto 0.1 K/mm3 (0-0.3); Eosinophils Percent Auto 0.6 % (0-4.4); Hematocrit 30.2 % (37.0-47.0); Hemoglobin 9.4 g/dL (12.0-15.0); Immature Granulocyte Absolute 0.15 K/mm3 (0.00-0.031); Immature Granulocyte Percent A 0.9 % (0-0.5); Lymphocytes Absolute Auto 0.82 K/mm3 (0.9-3.2); Lymphocytes Percent Auto 5.2 % (18.3-44.2); Mean Corpuscular HGB Conc 31.1 g/dl (32-36); Mean Corpuscular Hemoglobin 29.7 pg (26-34); Mean Corpuscular Volume 95.3 fl (80-100); Mean Platelet Volume 9.1 fl (7.4-10.4); Monocytes Absolute Auto 0.7 K/mm3 (0.1-0.6); Monocytes Percent Auto 4.4 % (2.6-8.5); Neutrophils Absolute Auto 13.9 K/mm3 (1.3-6.7); Neutrophils Percent Auto 88.3 % (45.5-73.1); Platelet Count Result 472 k/mm3 (150-375); Red Blood Count 3.17 M/mm3 (4.2-5.4); Red Cell Distribution Width 14.2 % (11.5-14.5); White Blood Count 15.8 K/mm3 (4.5-10.0)
[2024-05-19 08:43] LABS: Alanine Aminotransferase 12 U/L (6-35); Albumin Level 2.4 g/dL (3.5-5.1); Alkaline Phosphatase 115 U/L (38-126); Anion Gap 7 mmol/L (4-12); Aspartate Amino Transferase 31 U/L (14-36); Bilirubin,Total 0.6 mg/dL (0.2-1.3); Blood Urea Nitrogen 10 mg/dL (7-17); Calcium 7.7 mg/dL (8.4-10.2); Carbon Dioxide 22 mmol/L (22-30); Chloride 109 mmol/L (98-107); Estimated CRCL calculation 96 ml/min; Estimated Glomerular Filt Rate > 60; Glucose 115 mg/dL (65-110); Potassium 2.8 mmol/L (3.4-5.0); Sodium 138 mmol/L (137-145)
[2024-05-19 09:12] LABS: Magnesium 1.7 mg/dL (1.6-2.3)
[2024-05-19] MEDS: POTASSIUM CHLORIDE 20 MEQ ER TABLET 40 MEQ PO ×2 (09:24→18:05)
[2024-05-19 09:52] VITALS: O2SAT 94
[2024-05-19 12:00] VITALS: BP 122/60; PULSE 95; RESP 16; TEMP 36.2; O2SAT 96
--- NOTE | 2024-05-19 13:29 | P.DS_ITS ---
DS: Admitting Diagnosis Discharge Date 05/19/2024 Admitting Diagnosis Pneumonia, UTI DS: Discharge Diagnosis Discharge Diagnosis (1) Community acquired pneumonia: Qualifiers: Laterality: left Lung location: upper lobe of lung Qualified Code(s): J18.9 - Pneumonia, unspecified organism Code(s): J18.9 - Pneumonia, unspecified organism Status: Acute (2) Sepsis: Qualifiers: Sepsis acute organ dysfunction status: without acute organ dysfunction Sepsis type: sepsis due to unspecified organism Qualified Code(s): A41.9 - Sepsis, unspecified organism Code(s): A41.9 - Sepsis, unspecified organism Status: Acute (3) UTI (urinary tract infection): Qualifiers: Hematuria presence: with hematuria Urinary tract infection type: acute cystitis Qualified Code(s): N30.01 - Acute cystitis with hematuria Code(s): N39.0 - Urinary tract infection, site not specified Status: Acute (4) Restless leg syndrome: Code(s): G25.81 - Restless legs syndrome Status: Acute (5) Insomnia: Code(s): G47.00 - Insomnia, unspecified Status: Acute (6) Depression: Code(s): F32.A - Depression, unspecified Status: Acute (7) History of CVA with residual deficit: Code(s): I69.30 - Unspecified sequelae of cerebral infarction Status: Acute (8) Dyslipidemia: Code(s): E78.5 - Hyperlipidemia, unspecified Status: Acute (9) Hypokalemia: Code(s): E87.6 - Hypokalemia Status: Acute DS: Summary Hospital Course Reason for hospitalization: fall Hospital Course: Jessica Blankenship is a 68 F with a medical history significant for dyslipidemia, anxiety, CVA, peripheral neuropathy, RLS, insomnia. Due to residual effects of previous CVA, she had baseline ability to assist device and is unstable on her feet; hours prior to admission she while trying to navigate her way out of bed lost her balance and sustained a fall. She confesses to hitting head on a distant objects, denies bleeding/clots, LOC, chest pain, or preceding dizziness/vertiginous symptoms. She confesses to current smoking of less than 0.5 ppd cigarettes per day: Denies alcohol or recreational/illicit drug use. Work-up findings: WBC 17; HGB tends MCV 95; PLT 564. INR 1.1; PT 14.7 Na 131; K 3.3; Cl 94; CO2 30; HGB 7; BUN 29; CR 0.68; GFR 57 AST 14; ALT 14; ALP 146; T does bilirubin 0.9; CRP 27. UA:Negative nitrite; 1+ leukocyte esterase; 21-50 WBC; 4+ bacteria CXR: Left upper and lower lobe airspace consolidation, suspicious for multifocal left lung pneumonia. CT cervical spine: Severe degenerative disease, without acute fracture. Head CT: No acute intracranial hemorrhage or suspicious mass effect. Blood cultures showed negative growth. She received one dose of Vancomycin but then was switched to Cefepime and Doxycyline. She was then transitioned to Levofloxacin PO in order to prepare for discharge. Her WBC decreased from 17 to 13.7 initially but then increased back up to 15.8. Clinically she appeared to be improving greatly. She continued to deny any chest pain, shortness of breath, n/v, abdominal pain, or dizziness throughout her visit. A repeat chest x-ray was obtained on a.m. of 05/19 which showed Mild interval improvement of previously seen retrocardiac airspace consolidation. Right lung is clear. Unremarkable cardiomediastinal silhouette with a loop recorder. Mild degenerative changes. CMP showed mildly decreased Potassium on 05/18 and she was given potassium supplementation and on repeat CMP on 05/19 she had a K of 2.8. She was subsequently given 40mg more of potassium chloride and on additional repeat of CMP her K went back up to 3.4. She will be given a standing order for a repeat CMP. Vitals on a.m. of 05/19 were: BP 122/60, HR 95, Resp 16, Temp 97.1, O2 sat 96% on room air. Patient otherwise stable with stable or improving blood work. WBC should continue to decrease with antibiotic therapy but will order a WBC to be repeated in 5 days time to assess. Status at Discharge Functional status at discharge: bed bound Overall status at discharge: patient is back to baseline Time Spent with Patient Time attestation: Total time spent providing and/or coordinating discharge services: 45 Exam Const: General: no acute distress HENMT: Ears: TM's normal bilaterally Face/Nose/Sinus: Normal nares present Eyes: General: appearance normal, both eyes and all related structures Pupils: Equal, round and reactive pupils present EOM: EOMs intact bilaterally Neck: Neck: supple Resp: Effort & Inspection: normal respiratory effort Auscultation: clear to auscultation bilaterally Cardio: Rate: regular rate Rhythm: regular rhythm GI: GI Palp: Yes Soft to palpation Auscultation: normal bowel sounds Skin: General skin exam: normal color Neuro: General: No gait normal Cranial nerves: Yes Equal, round and reactive pupils present Speech: normal speech Motor exam (neuro): Abnormal motor strength present Extrem: General: normal to inspection Psych: Mental Status: mental status grossly normal Affect: normal affect DS: Data Data Completed and Pending Labs on day of discharge: Labs from last 24 hours 05/19/24 08:22 WBC 15.8 H RBC 3.17 L Hgb 9.4 L Hct 30.2 L MCV 95.3 MCH 29.7 MCHC 31.1 L RDW 14.2 Plt Count 472 H MPV 9.1 Immature Gran % (Auto) 0.9 H Neut % (Auto) 88.3 H Lymph % (Auto) 5.2 L Sampson % (Auto) 4.4 Eos % (Auto) 0.6 Baso % (Auto) 0.6 Lymph # (Auto) 0.82 L Sampson # (Auto) 0.7 H Eos # (Auto) 0.1 Baso # (Auto) 0.1 Abs Immat Gran (auto) 0.15 H Absolute Neuts (auto) 13.9 H Absolute Nucleated RBC 0.000 Nucleated RBC % 0.0 Sodium 138 Potassium 2.8 L* Chloride 109 H Carbon Dioxide 22 Anion Gap 7 BUN 10 Creatinine 0.38 L Estim Creat Clear Calc 96 Estimated GFR > 60 Glucose 115 H Calcium 7.7 L Magnesium 1.7 Total Bilirubin 0.6 AST 31 ALT 12 Alkaline Phosphatase 115 Total Protein 6.0 L Albumin 2.4 L Preliminary micro results at discharge 05/15/24 23:50 Blood Culture - Preliminary Blood 05/15/24 23:50 Blood Culture - Preliminary Blood Imaging Radiologist's impression: CT brain wo con 05/15/24 No acute intracranial hemorrhage or suspicious mass effect. Prior right MCA cerebral infarction CT cervical spine wo con 05/15/24 Severe degenerative disease, without acute fracture. Additional findings within the left upper lobe for which an infiltrate is suspected. XR chest 1V portable 05/16/24 Left upper and lower lobe airspace consolidation, suspicious for multifocal left lung pneumonia. XR chest 1V portable 05/19/24 Mild interval improvement of previously seen retrocardiac airspace consolidation. Right lung is clear. Unremarkable cardiomediastinal silhouette with a loop recorder. Mild degenerative changes. Discharge Plan Discharge Attending physician on discharge: Magan Simons Discharging Clinician: Magan Simons Anticipated Discharge Date/Time: 05/19/24 11:37 Patient Disposition: SNF Activity: as tolerated Diet: as tolerated Discharge Instructions: Take all medications as prescribed even if feeling better. You will be prescribed Levofloxacin to take for an additional 5 days. Wear a mask in public, and stay away from large crowds Eat well balanced meals and stay hydrated Check your SPO2 periodically, if it is low cough and rest, check again in about 15 minutes, if you remain low, you should come back to the hospital If you should experience any chest pain, shortness of breath, temps >100.4 or any other worrisome symptoms please follow up with your PCP come back to the hospital Follow up with your primary in 1 weeks You will be given an order for repeat CMP and CBC in 5 days time. It has been a pleasure taking care of you thank you for using our services Patient Language: Belgian Stand Alone Forms: General Discharge Information Follow-up/Referrals: Rahul,Agustin [Other] Discharge Medications: New levofloxacin 750 mg tablet 750 mg PO DAILY Qty: 5 0RF Continued atorvastatin 80 mg tablet 80 mg PO QPM aspirin [Adult Aspirin Regimen] 81 mg tablet,delayed release (DR/EC) 81 mg PO DAILY acetaminophen 325 mg tablet,chewable 650 mg PO Q4-6H PRN (Reason: fever or pain) buspirone 10 mg tablet 10 mg PO HS buspirone 5 mg tablet 5 mg PO QAM clopidogrel 75 mg tablet 75 mg PO DAILY duloxetine 60 mg capsule,delayed release(DR/EC) 60 mg PO QAM ferrous fumarate [Ferrocite] 324 mg (106 mg iron) tablet 324 mg PO DAILY gabapentin 300 mg capsule 300 mg PO Q8H polyethylene glycol 3350 [Miralax] 17 gram/dose powder 17 g PO DAILY pramipexole 0.25 mg tablet 0.25 mg PO TID ropinirole 0.25 mg tablet 0.25 mg PO TID senna 8.6 mg capsule 8.6 mg PO DAILY tizanidine 4 mg tablet 4 mg PO TID trazodone 50 mg tablet 50 mg PO HS Other Ambulatory Orders: Complete Blood Count with Diff (Routine) Timeframe: 5 Days Location: Determined by Patient Ordered By: Magan Simons Comprehensive Metabolic Panel (Routine) Timeframe: 5 Days Location: Determined by Patient Ordered By: Magan Simons Date of admission: 05/16/24 02:11 Primary Care Provider: ThereseAgustin Admitting Provider: Chip Martinez Attending physician on admission: Magan Simons Condition: Serious Hospitalist MIPS Heart Failure (Exclusion) Patient has history of Heart Transplant or Left Ventricular Assistive Device?: No IF YES, STOP HERE Heart Failure (Qualifier) Patient has current or prior documentation of LVEF less than or equal to 40%, or mod/servere depressed LVSF?: No IF NO, STOP HERE
[2024-05-19 14:44] LABS: Anion Gap 6 mmol/L (4-12); Blood Urea Nitrogen 11 mg/dL (7-17); Calcium 7.6 mg/dL (8.4-10.2); Carbon Dioxide 23 mmol/L (22-30); Chloride 109 mmol/L (98-107); Estimated CRCL calculation 94 ml/min; Estimated Glomerular Filt Rate > 60; Glucose 140 mg/dL (65-110); Potassium 3.3 mmol/L (3.4-5.0); Sodium 138 mmol/L (137-145)
[2024-05-19 18:00] VITALS: BP 90/58; PULSE 74; RESP 14; TEMP 36.4; O2SAT 95
== END 2024-05-19 18:05 ==
LOC: ANHED 23:54 → ANH3MEDSUR 05-16 03:04
PROVIDERS: Admitting Provider Internal Medicine; Emergency Provider Preventive Medicine Aerospace Medicine; Visit Provider Physician Assistant
DX: A41.9 Sepsis, unspecified organism (principal); J18.9 Pneumonia, unspecified organism; N30.01 Acute cystitis with hematuria; W06.XXXA Fall from bed, initial encounter; I69.398 Other sequelae of cerebral infarction; R26.89 Other abnormalities of gait and mobility; F17.210 Nicotine dependence, cigarettes, uncomplicated; E78.5 Hyperlipidemia, unspecified; F41.8 Other specified anxiety disorders; G62.9 Polyneuropathy, unspecified; G25.81 Restless legs syndrome; G47.00 Insomnia, unspecified; Z79.02 Long term (current) use of antithrombotics/antiplatelets; Z79.82 Long term (current) use of aspirin; Z79.899 Other long term (current) drug therapy
CPT/HCPCS: 36415; 70450; 71045; 72125; 80048; 80053; 80061; 81001; 83036; 83605; 83735; 83880; 84484; 85025; 85610; 85730; 86140; 87040; 87086; 87641; 93005; 96360; 96361; 96365; 96366; 96367; 96372; 96374; 96376; 99285; A9270; G0378; G0379; J0692; J1650; J3370; J7030